=== PATIENT | female | born 1965 | race Caucasian/White ===

== ENCOUNTER 2017-05-02 10:01 | Emergency (ER) | payer OTHER ==
[2017-05-02] MEDS ORDERED: HYDROmorphone 2 MG/ML VIAL IV/SQ PRN (10:30)
[2017-05-02] MEDS ORDERED: 0.9 % SODIUM CHLORIDE 10 ML DISP.SYRIN. IV PRN (10:30)
[2017-05-02] MEDS ORDERED: IV NORMAL SALINE 1000ML BAG 1,000 ML IV SCH (10:30)
[2017-05-02 10:31] LABS: BASO % 0 % (0-3); EOS % 2 % (0-3); HEMOGLOBIN 14.2 g/dL (12.0-15.5); LYMPH # 2.8 x10^3/uL (1.0-4.8); LYMPH % 37 % (24-48); MEAN CORPUSCULAR HEMOGLOBIN 31 pg (25-35); MEAN CORPUSCULAR HGB CONC 35 g/dL (31-37); MEAN CORPUSCULAR VOLUME 91 fL (79-100); MONO % 7 % (0-9); NEUT % 53 % (31-73); PLATELET COUNT 319 x10^3/uL (140-400); RED BLOOD COUNT 4.53 x10^6/uL (3.50-5.40); RED CELL DISTRIBUTION WIDTH 13.2 % (11.5-14.5); WHITE BLOOD COUNT 7.5 x10^3/uL (4.0-11.0)
[2017-05-02 10:39] LABS: CALCIUM 8.8 mg/dL (8.5-10.1); CREATININE 0.9 mg/dL (0.6-1.0); POTASSIUM 4.1 mmol/L (3.5-5.1)
[2017-05-02] MEDS ORDERED: FAMOTIDINE 20 MG/2 ML VIAL IVP ONE (10:45)
[2017-05-02] MEDS ORDERED: ONDANSETRON PF 4 MG/2 ML VIAL. IV ONE (10:45)
[2017-05-02 10:46] LABS: ALBUMIN 3.7 g/dL (3.4-5.0); DIRECT BILIRUBIN 0.1 mg/dL (0.0-0.2); MAGNESIUM 1.8 mg/dL (1.8-2.4); TOTAL BILIRUBIN 0.3 mg/dL (0.2-1.0); TOTAL PROTEIN 7.5 g/dL (6.4-8.2)
[2017-05-02 10:53] LABS: CKMB MASS 0.8 ng/mL (0.0-3.6); CREATINE KINASE 56 U/L (26-192)
[2017-05-02] MEDS ORDERED: CONTRAST GIVEN MC PRN (11:15)
[2017-05-02] MEDS ORDERED: IOHEXOL 300 MG/ML 75 ML VIAL IV ONE (11:30)
--- NOTE | 2017-05-02 11:33 | PHYS DOC ---
Past Medical History Past Medical History: Other Additional Past Medical Histor: CROHNS,LOWER LUMBAR BULGING DISC Past Surgical History: Other Additional Past Surgical Histo: ARTHROSCOPIC R KNEE Alcohol Use: Occasionally Drug Use: None Adult General Chief Complaint Chief Complaint: ABDOMINAL PAIN [facility] HPI sHe is a pleasant 52-year-old female with history of chronic lower back pain is been treating by herself and using NSAIDs daily for last 2 months. She is also self-reported history of Crohn's disease not the care of any GI physician on no medications. Her last 4 days she presents with increasing left upper quadrant abdominal pain is worse with breathing is worse in the mornings and worse with food. She's had some nausea without vomiting no diarrhea no loose stools patient denies any blood in her stool, or constipation. She denies any trauma to her abdomen, denies any fevers, chills, chest pain she is mildly short of breath secondary to pain which takes deep breath in and it moves her left abdominal wall. Patient denies any right wrist and the same symptoms except for the last 4 days. The pain is now more constant as it was episodic at first but now progressively worse. She denies any abdominal distention. Patient denies any travel outside the country, recent antibiotics, or sick contacts. My abdominal pain differential includes but not limited to ectopic , UTI, pyonephritis, cholecystitis, cholelithiasis, pancreatitis, appendicitis, small bowel obstruction, large bowel obstruction, diverticulosis, Diverticulum, intussusception, volvulus, irritable bowel disease, Crohn's or ulcerative colitis, considered upon arrival Review of Systems Review of Systems Constitutional: Denies fever or chills [] Eyes: Denies change in visual acuity, redness, or eye pain [] HENT: Denies nasal congestion or sore throat [] Respiratory: Denies cough or she does complain of shortness of breath with abdominal wall pain when she moves. Cardiovascular: No additional information not addressed in HPI [] GI: She does complain of abdominal pain in the left upper quadrant is constant in nature. She denies any vomiting bloody stools or diarrhea. : Denies dysuria or hematuria [] Musculoskeletal: Does have chronic mid back pain secondary to bulging disks. Integument: Denies rash or skin lesions [] Neurologic: Denies headache, focal weakness or sensory changes [] Endocrine: Denies polyuria or polydipsia [] Current Medications Current Medications Current Medications Medications (Trade) Dose Ordered Sig/Daisy Start Time Stop Time Status Last Admin Dose Admin Famotidine (Pepcid) 20 mg 1X ONCE 05/02/17 10:45 05/02/17 10:46 DC 05/02/17 11:06 20 MG Hydromorphone HCl (Dilaudid) 1 mg PRN Q15MIN PRN 05/02/17 10:30 05/03/17 10:29 Info (Do NOT chart on this entry -- for MONITORING) 1 each PRN DAILY PRN 05/02/17 11:15 05/04/17 11:14 Iohexol (Omnipaque 300 Mg/ml) 75 ml 1X ONCE 05/02/17 11:30 05/02/17 11:31 DC 05/02/17 11:10 75 ML Ondansetron HCl (Zofran) 4 mg 1X ONCE 05/02/17 10:45 05/02/17 10:46 DC 05/02/17 11:06 4 MG Sodium Chloride (Normal Saline Flush) 10 ml QSHIFT PRN 05/02/17 10:30 Allergies Allergies Allergies Coded Allergies Type Severity Reaction Last Updated Verified Penicillins Allergy Intermediate Hives 08/01/15 No Physical Exam Physical Exam Vital signs on the chart and reviewed within normal limits. Constitutional: Well developed, well nourished, he is [place] uncomfortable but nontoxic in appearance nondiaphoretic pale. HENT: Normocephalic, atraumatic, bilateral external ears normal, dry mucous membranes, no oral exudates, nose normal. [] Eyes: PERRLA, EOMI, conjunctiva normal, no discharge. [] Neck: Normal range of motion, no tenderness, supple, no stridor. [] Cardiovascular:Heart rate regular rhythm, no murmur [] Lungs & Thorax: Bilateral breath sounds clear to auscultation [] Abdomen: Patient does have tenderness to palpation left upper quadrant with some voluntary guarding no rebound or organomegaly. Patient is no Cardozo's or McBurney's point tenderness palpation of greater sign. Skin: Warm, dry, no erythema, no rash. [] Back: No specific CVA tenderness elicited on exam. Extremities: No tenderness, no cyanosis, no clubbing, ROM intact, no edema. [] Neurologic: Alert and oriented X 3, normal motor function, normal sensory function, no focal deficits noted. [] Psychologic: Affect normal, judgement normal, mood normal. [] Current Patient Data Vital Signs Vital Signs Date Time Temp Pulse Resp B/P (MAP) Pulse Ox O2 Delivery O2 Flow Rate FiO2 05/02/17 11:10 92 107/69 (82) 98 Room Air 05/02/17 10:10 98.8 16 98.8 Lab Values Laboratory Tests Test 05/02/17 10:15 White Blood Count 7.5 x10^3/uL (4.0-11.0) Red Blood Count 4.53 x10^6/uL (3.50-5.40) Hemoglobin 14.2 g/dL (12.0-15.5) Hematocrit 41.0 % (36.0-47.0) Mean Corpuscular Volume 91 fL (79-100) Mean Corpuscular Hemoglobin 31 pg (25-35) Mean Corpuscular Hemoglobin Concent 35 g/dL (31-37) Red Cell Distribution Width 13.2 % (11.5-14.5) Platelet Count 319 x10^3/uL (140-400) Neutrophils (%) (Auto) 53 % (31-73) Lymphocytes (%) (Auto) 37 % (24-48) Monocytes (%) (Auto) 7 % (0-9) Eosinophils (%) (Auto) 2 % (0-3) Basophils (%) (Auto) 0 % (0-3) Neutrophils # (Auto) 4.0 x10^3uL (1.8-7.7) Lymphocytes # (Auto) 2.8 x10^3/uL (1.0-4.8) Monocytes # (Auto) 0.5 x10^3/uL (0.0-1.1) Eosinophils # (Auto) 0.1 x10^3/uL (0.0-0.7) Basophils # (Auto) 0.0 x10^3/uL (0.0-0.2) Sodium Level 137 mmol/L (136-145) Potassium Level 4.1 mmol/L (3.5-5.1) Chloride Level 102 mmol/L (98-107) Carbon Dioxide Level 31 mmol/L (21-32) Anion Gap 4 (6-14) L Blood Urea Nitrogen 10 mg/dL (7-20) Creatinine 0.9 mg/dL (0.6-1.0) Estimated GFR (Cockcroft-Gault) 66.0 Glucose Level 105 mg/dL (70-99) H Calcium Level 8.8 mg/dL (8.5-10.1) Magnesium Level 1.8 mg/dL (1.8-2.4) Total Bilirubin 0.3 mg/dL (0.2-1.0) Direct Bilirubin 0.1 mg/dL (0.0-0.2) Aspartate Amino Transferase (AST) 19 U/L (15-37) Alanine Aminotransferase (ALT) 22 U/L (14-59) Alkaline Phosphatase 79 U/L (46-116) Creatine Kinase 56 U/L (26-192) Creatine Kinase MB (Mass) 0.8 ng/mL (0.0-3.6) Creatine Kinase MB Relative Index % (0-4) Troponin I Quantitative < 0.017 ng/mL (0.000-0.055) DN-Dzy-X-Type Natriuretic Peptide 74 pg/mL (0-124) Total Protein 7.5 g/dL (6.4-8.2) Albumin 3.7 g/dL (3.4-5.0) Lipase 172 U/L (73-393) Laboratory Tests 05/02/17 10:15 Laboratory Tests 05/02/17 10:15 EKG EKG [] EKG completed 10:07 AM 05/02/2017 demonstrates normal sinus rhythm with a heart rate 98. Patient has some nonspecific ST segment T-wave changes in the anterior leads of V1 and V2. She has a slightly's sounds elevation in lead V1 no clear ST segment depression. Patient has nonspecific abnormal EKG with no clear signs of STEMI. EKG read by Dr. Mesa. Radiology/Procedures Radiology/Procedures [] [address] [place], [place] [id number] IMAGING REPORT Signed PATIENT: JACKELINE LINO ACCOUNT: [id number] : 1965 LOCATION: ER AGE: 52 SEX: F EXAM STATUS: REG ER ORD. PHYSICIAN: WON MESA MD REASON: left upper quadrant abdominal pain PROCEDURE: CT ABD PELV W/ IV CONTRST ONLY Indication left upper quadrant pain for 4 days. Axial images through the abdomen and pelvis were obtained. No oral contrast was administered. 75 cc of Omnipaque 300 was administered intravenously. No prior imaging is available. There is some minimal scarring or atelectasis at the left lung base ventrally. An acute or definite significant finding at either lung base is not seen. A significant finding in the liver is not seen. There is a low-density subcentimeter mass in the right lobe likely reflecting a small incidental cyst. The spleen appears unremarkable. There is probable cholelithiasis. This could be further evaluated with ultrasound if clinically warranted. No pancreatic abnormality is seen. No adrenal pathology is seen. There are several right renal calculi. There is no hydronephrosis hydroureter or calcification seen along the course of either ureter. Several phleboliths are noted in the pelvis. Acute finding in the abdomen is not seen. No acute finding is seen in the pelvis. IMPRESSION: No acute finding seen in the abdomen or pelvis. Probable cholelithiasis. Right renal calculi DICTATED and SIGNED BY: MÓNICA CRAWFORD MD DATE: 05/02/17 1141 CC: WON MESA MD; NO PCP ~ IMAGING REPORT Signed PATIENT: JACKELINE LINO ACCOUNT: [id number] : 1965 LOCATION: ER AGE: 52 SEX: F EXAM STATUS: REG ER ORD. PHYSICIAN: WON MESA MD REASON: cholelithiasis with abdominal pain. PROCEDURE: ABDOMEN LTD Indication pain. Grayscale imaging was performed. Examination was targeted to the right upper quadrant. Note is made of the CT examination of the abdomen and pelvis suggesting cholelithiasis. The visualized liver appears unremarkable. The common bile duct is prominent measuring approximately 7.5 mm. Known right renal calculi are reproduced.. There is cholelithiasis. The visualized inferior vena cava appeared normal. IMPRESSION: Cholelithiasis. Moderately prominent common bile duct. DICTATED and SIGNED BY: MÓNICA CRAWFORD MD DATE: 05/02/17 1239 CC: WON MESA MD; NO PCP ~ Course & Med Decision Making Course & Med Decision Making Pertinent Labs and Imaging studies reviewed. (See chart for details) I reviewed patient's notes ER visit documentation, laboratory work and EKG upon arrival. [] My abdominal pain differential includes but not limited to ectopic , UTI, pyonephritis, cholecystitis, cholelithiasis, pancreatitis, appendicitis, small bowel obstruction, large bowel obstruction, diverticulosis, Diverticulum, intussusception, volvulus, irritable bowel disease, Crohn's or ulcerative colitis, considered upon arrival Patient arrives with belly pain in the left upper quadrant after using NSAIDs for 2 months. 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 Patient may have actually a small ulcer or perforation at this time given the severity of her symptoms of increased over last 4 days. Patient was given a GI cocktail fluids antiemetics here in the emergency department with marked improvement of her symptoms. Patient tells me that their symptoms given during CC are improved. Time is now 11:53 AM We reviewed labs and radiology reports with patient at this time a CAT scan reveals cholelithiasis. She is nontender in the right upper quadrant she does not have any fever or elevated LFTs with normal white count. Patient will have a abdominal ultrasound done of her abdomen to rule out cholelithiasis with cholecystitis. Time is now 1:17 PMPatient tells me that their symptoms given during CC are improved. We reviewed labs and radiology reports with patient and any family at bedside. Ultrasound shows a predominance, bile duct with no dilatation greater than 7.5 mm. Patient has no gallbladder wall thickness, no Pulses fluid. No sonographic Cardozo's no evidence of cholecystitis on exam. Patient denied discussed changing her medications from NSAIDs to possibly something with little narcotic in it to prevent any secondary sequelae of and said usage. She will be followed up with GI as soon as she possibly arranged. She needs an EGD but in the interim I will treat her with Carafate and proton pump inhibitor and encouraged her not to use NSAIDs. Impression: Dyspepsia, peptic ulcer disease likely secondary to NSAID use, abdominal pain of unclear etiology. Dragon Disclaimer Dragon Disclaimer This electronic medical record was generated, in whole or in part, using a voice recognition dictation system. Departure Departure Impression: Primary Impression: Cholelithiasis Additional Impressions: Dyspepsia Peptic ulcer disease Abdominal pain Disposition: HOME, SELF-CARE Condition: STABLE Referrals: NO PCP (PCP) Patient Instructions: Abdominal Pain, Cholelithiasis, Diet for Peptic Ulcer Disease, Peptic Ulcer Disease Additional Instructions: Please return for any new or increasing symptoms in the right upper quadrant or left upper quadrant despite treatment. Advise you do not take any NSAIDs anymore until you see the GI doctor. I believe that the pain medications you are using May the causing her symptoms and this continued usage may cause perforation of your abdomen. Please return if he requested concerns or symptoms are not improved with therapy. This follow up with your primary care doctor for referral to GI for EGD. Scripts Pantoprazole Sodium (PROTONIX) 40 Mg Tablet.dr 1 TAB PO DAILY, #30 TAB 5 Refills Prov: WON MESA MD 05/02/17 Hydrocodone Bit/Acetaminophen (HYDROCODONE-APAP 5-325 ) 1 Each Tablet 1-2 TAB PO PRN Q6HRS Y for PAIN for 5 Days, #10 TAB 0 Refills Prov: WON MESA MD 05/02/17 Sucralfate (CARAFATE) 1 Gm Tablet 1 TAB PO QID, #60 TAB 1 Refill Prov: WON MESA MD 05/02/17 Problem Qualifiers WON MESA MD May 02, 2017 11:33
--- NOTE | 2017-05-02 11:52 | RAD ---
Indication left upper quadrant pain for 4 days. Axial images through the abdomen and pelvis were obtained. No oral contrast was administered. 75 cc of Omnipaque 300 was administered intravenously. No prior imaging is available. There is some minimal scarring or atelectasis at the left lung base ventrally. An acute or definite significant finding at either lung base is not seen. A significant finding in the liver is not seen. There is a low-density subcentimeter mass in the right lobe likely reflecting a small incidental cyst. The spleen appears unremarkable. There is probable cholelithiasis. This could be further evaluated with ultrasound if clinically warranted. No pancreatic abnormality is seen. No adrenal pathology is seen. There are several right renal calculi. There is no hydronephrosis hydroureter or calcification seen along the course of either ureter. Several phleboliths are noted in the pelvis. Acute finding in the abdomen is not seen. No acute finding is seen in the pelvis. IMPRESSION: No acute finding seen in the abdomen or pelvis. Probable cholelithiasis. Right renal calculi
--- NOTE | 2017-05-02 12:44 | RAD ---
Indication pain. Grayscale imaging was performed. Examination was targeted to the right upper quadrant. Note is made of the CT examination of the abdomen and pelvis suggesting cholelithiasis. The visualized liver appears unremarkable. The common bile duct is prominent measuring approximately 7.5 mm. Known right renal calculi are reproduced.. There is cholelithiasis. The visualized inferior vena cava appeared normal. IMPRESSION: Cholelithiasis. Moderately prominent common bile duct.
[2017-05-02] MEDS ORDERED: SUCR1TAB35 PO (13:23)
[2017-05-02] MEDS ORDERED: PANT40TA3 PO (13:23)
[2017-05-02] MEDS ORDERED: HYDR-2758 PO (13:23)
[2017-05-02 13:30] VITALS: BP 103/66
--- NOTE | 2017-05-02 14:59 | EKG ---
[facility] [address] [place] [id number] Test Date: 2017-05-02 Test Time: 10:07:54 Pat Name: JACKELINE LINO Department: Room: Gender: F Industrial Engineering Manager: : 1965 Requested By: WON MESA Order Number: [id number] Reading MD: Sebastian Garcia Measurements Intervals [place] Rate: 98 P: 62 NH: 76 QRS: 2 QRSD: 116 T: -101 QT: 380 QTc: 487 Interpretive Statements SINUS RHYTHM QRS(T) CONTOUR ABNORMALITY CONSIDER ANTEROLATERAL MYOCARDIAL DAMAGE CONSISTENT WITH INFERIOR INFARCT AGE UNDETERMINED ABNORMAL ECG RI6.01 No previous ECG available for comparison Electronically Signed On 05-07-2017 9:40:16 CDT by Sebastian Garcia
== END 2017-05-02 13:31 | disposition home or self-care (01) ==
LOC: ER 10:01
DX: K27.9 Peptic ulcer, site unspecified, unspecified as acute or chronic, without hemorrhage or perforation (principal); K80.20 Calculus of gallbladder without cholecystitis without obstruction; K58.9 Irritable bowel syndrome, unspecified; K50.90 Crohn's disease, unspecified, without complications; G89.29 Other chronic pain; Z87.440 Personal history of urinary (tract) infections; Z87.19 Personal history of other diseases of the digestive system; Z88.0 Allergy status to penicillin
CPT/HCPCS: 36415; 74177; 76705; 80048; 80076; 82553; 83690; 83735; 83880; 84484; 85027; 93005; 96361; 96374; 96375; 99285; J2405; J7030; Q9967; S0028

== ENCOUNTER 2017-12-26 00:33 | Emergency (ER) | payer SELFPAY, OTHER ==
[2017-12-26] MEDS: TETRACAINE 0.5% OPHTH SOLUTION 4ML BOTTLE. OD (00:42)
[2017-12-26] MEDS: FLUORESCEIN OPHTH TEST STRIP. OD (00:43)
== END 2017-12-26 00:58 | disposition home or self-care (01) ==
LOC: ER 00:33
DX: T15.02XA Foreign body in cornea, left eye, initial encounter (principal); Z88.0 Allergy status to penicillin; X58.XXXA Exposure to other specified factors, initial encounter; Y93.89 Activity, other specified; Y92.89 Other specified places as the place of occurrence of the external cause; Y99.8 Other external cause status
CPT/HCPCS: 65220; 99284

== ENCOUNTER 2019-01-18 07:08 | Inpatient (IN) | payer SELFPAY ==
[~2019-01-18] VITALS: Ht 172.7 cm; Wt 92.1 kg
[~2019-01-18 07:08] MED LIST: HYDR-2761 PO; PANT40TA3 PO; SUCR1TAB35 PO
[2019-01-18] MEDS ORDERED: MORPHINE SULFATE 4 MG/ML VIAL. IV ONE (07:45)
[2019-01-18] MEDS ORDERED: ONDANSETRON PF 4 MG/2 ML VIAL. IV ONE (07:45)
[2019-01-18] MEDS ORDERED: IV NORMAL SALINE 1000ML BAG 1,000 ML IV ONE (07:45)
[2019-01-18 07:59] LABS: BILIRUBIN,URINE NEGATIVE (NEG); CLARITY,URINE CLOUDY; COLOR,URINE YELLOW; NITRITE,URINE POSITIVE (NEG); PROTEIN,URINE NEGATIVE (NEG-TRACE)
[2019-01-18 08:04] LABS: CALCIUM 9.1 mg/dL (8.5-10.1); CREATININE 0.8 mg/dL (0.6-1.0); GFR 75.3; POTASSIUM 3.7 mmol/L (3.5-5.1)
[2019-01-18 08:07] LABS: BASO % 0 % (0-3); EOS # 0.1 x10^3/uL (0.0-0.7); EOS % 1 % (0-3); HEMATOCRIT 39.2 % (36.0-47.0); HEMOGLOBIN 13.5 g/dL (12.0-15.5); LYMPH # 1.6 x10^3/uL (1.0-4.8); LYMPH % 14 % (24-48); MEAN CORPUSCULAR HEMOGLOBIN 31 pg (25-35); MEAN CORPUSCULAR HGB CONC 34 g/dL (31-37); MEAN CORPUSCULAR VOLUME 90 fL (79-100); MONO # 1.1 x10^3/uL (0.0-1.1); MONO % 10 % (0-9); NEUT # 8.4 x10^3uL (1.8-7.7); NEUT % 75 % (31-73); PLATELET COUNT 302 x10^3/uL (140-400); RED BLOOD COUNT 4.35 x10^6/uL (3.50-5.40); RED CELL DISTRIBUTION WIDTH 13.5 % (11.5-14.5); WHITE BLOOD COUNT 11.3 x10^3/uL (4.0-11.0)
--- NOTE | 2019-01-18 08:09 | PHYS DOC ---
Past Medical History Past Medical History: Other Additional Past Medical Histor: CROHNS,LOWER LUMBAR BULGING DISC,"BRAIN TUMOR" Past Surgical History: Other Additional Past Surgical Histo: ARTHROSCOPIC R KNEE Alcohol Use: Occasionally Drug Use: None Adult General Chief Complaint Chief Complaint: ABDOMINAL PAIN HPI HPI Patient is a 53 year old female presented to ER today for evaluation of diffuse abdominal pain for the last 3 days. Patient also complained of nausea and v omiting. Patient has history of Crohn disease, she had not seen a GI doctor recently. Patient denies any fever, no chest pain, no trouble breathing. Review of Systems Review of Systems Constitutional: Denies fever or chills [] Eyes: Denies change in visual acuity, redness, or eye pain [] HENT: Denies nasal congestion or sore throat [] Respiratory: Denies cough or shortness of breath [] Cardiovascular: No additional information not addressed in HPI [] GI: Positive for abdominal pain, nausea, vomiting, NO bloody stools or diarrhea [] : Denies dysuria or hematuria [] Musculoskeletal: Denies back pain or joint pain [] Integument: Denies rash or skin lesions [] Neurologic: Denies headache, focal weakness or sensory changes [] Endocrine: Denies polyuria or polydipsia [] All other systems were reviewed and found to be within normal limits, except as documented in this note. Current Medications Current Medications Current Medications Medications (Trade) Dose Ordered Sig/[facility] Start Time Stop Time Status Last Admin Dose Admin Fentanyl Citrate (Fentanyl 2ml Vial) 50 mcg 1X ONCE 01/18/19 09:15 01/18/19 09:16 DC 01/18/19 09:12 50 MCG Info (CONTRAST GIVEN -- Rx MONITORING) 1 each PRN DAILY PRN 01/18/19 08:30 01/20/19 08:29 Iohexol (Omnipaque 300 Mg/ml) 75 ml 1X ONCE 01/18/19 08:30 01/18/19 08:31 DC 01/18/19 08:38 75 ML Morphine Sulfate (Morphine Sulfate) 4 mg Q4HRS PRN 01/18/19 10:15 01/19/19 10:14 01/18/19 10:24 4 MG Ondansetron HCl (Zofran) 4 mg PRN Q8HRS PRN 01/18/19 10:15 01/19/19 10:14 Sodium Chloride 1,000 ml @ 100 mls/hr Q10H 01/18/19 10:08 01/19/19 10:07 01/18/19 10:24 100 MLS/HR Allergies Allergies Allergies Coded Allergies Type Severity Reaction Last Updated Verified Penicillins Allergy Intermediate Hives 08/01/15 No Physical Exam Physical Exam Constitutional: Well developed, well nourished, no acute distress, non-toxic appearance. [] HENT: Normocephalic, atraumatic, bilateral external ears normal, oropharynx moist, no oral exudates, nose normal. [] Eyes: PERRLA, EOMI, conjunctiva normal, no discharge. [] Neck: Normal range of motion, no tenderness, supple, no stridor. [] Cardiovascular:Heart rate regular rhythm, loud heart murmur Lungs & Thorax: Bilateral breath sounds clear to auscultation [] Abdomen: Bowel sounds normal, soft, There is tenderness to palpation diffusely, no masses, no pulsatile masses. [] Skin: Warm, dry, no erythema, no rash. [] Back: No tenderness, no CVA tenderness. [] Extremities: No tenderness, no cyanosis, no clubbing, ROM intact, no edema. [] Neurologic: Alert and oriented X 3, normal motor function, normal sensory function, no focal deficits noted. [] Psychologic: Affect normal, judgement normal, mood normal. [] Current Patient Data Vital Signs Vital Signs Date Time Temp Pulse Resp B/P (MAP) Pulse Ox O2 Delivery O2 Flow Rate FiO2 01/18/19 10:00 73 16 104/71 (82) 98 Room Air 01/18/19 07:10 97.5 97.5 Lab Values Laboratory Tests Test 01/18/19 07:10 01/18/19 07:40 Urine Collection Type Void Urine Color Yellow Urine Clarity Cloudy Urine pH 6.0 Urine Specific [place] 1.025 Urine Protein Negative mg/dL (NEG-TRACE) Urine Glucose (UA) Negative mg/dL (NEG) Urine Ketones (Stick) Trace mg/dL (NEG) Urine Blood Small (NEG) Urine Nitrite Positive (NEG) Urine Bilirubin Negative (NEG) Urine Urobilinogen Dipstick 2.0 mg/dL (0.2 mg/dL) Urine Leukocyte Esterase Moderate (NEG) Urine RBC 0 /HPF (0-2) Urine WBC 5-10 /HPF (0-4) Urine Squamous Epithelial Cells Mod /LPF Urine Amorphous Sediment Present /HPF Urine Bacteria Many /HPF (0-FEW) Urine Mucus Mod /LPF White Blood Count 11.3 x10^3/uL (4.0-11.0) H Red Blood Count 4.35 x10^6/uL (3.50-5.40) Hemoglobin 13.5 g/dL (12.0-15.5) Hematocrit 39.2 % (36.0-47.0) Mean Corpuscular Volume 90 fL (79-100) Mean Corpuscular Hemoglobin 31 pg (25-35) Mean Corpuscular Hemoglobin Concent 34 g/dL (31-37) Red Cell Distribution Width 13.5 % (11.5-14.5) Platelet Count 302 x10^3/uL (140-400) Neutrophils (%) (Auto) 75 % (31-73) H Lymphocytes (%) (Auto) 14 % (24-48) L Monocytes (%) (Auto) 10 % (0-9) H Eosinophils (%) (Auto) 1 % (0-3) Basophils (%) (Auto) 0 % (0-3) Neutrophils # (Auto) 8.4 x10^3uL (1.8-7.7) H Lymphocytes # (Auto) 1.6 x10^3/uL (1.0-4.8) Monocytes # (Auto) 1.1 x10^3/uL (0.0-1.1) Eosinophils # (Auto) 0.1 x10^3/uL (0.0-0.7) Basophils # (Auto) 0.0 x10^3/uL (0.0-0.2) Sodium Level 137 mmol/L (136-145) Potassium Level 3.7 mmol/L (3.5-5.1) Chloride Level 103 mmol/L (98-107) Carbon Dioxide Level 24 mmol/L (21-32) Anion Gap 10 (6-14) Blood Urea Nitrogen 10 mg/dL (7-20) Creatinine 0.8 mg/dL (0.6-1.0) Estimated GFR (Cockcroft-Gault) 75.3 BUN/Creatinine Ratio 13 (6-20) Glucose Level 117 mg/dL (70-99) H Calcium Level 9.1 mg/dL (8.5-10.1) Total Bilirubin 0.5 mg/dL (0.2-1.0) Aspartate Amino Transferase (AST) 20 U/L (15-37) Alanine Aminotransferase (ALT) 23 U/L (14-59) Alkaline Phosphatase 80 U/L (46-116) Total Protein 7.0 g/dL (6.4-8.2) Albumin 3.3 g/dL (3.4-5.0) L Albumin/Globulin Ratio 0.9 (1.0-1.7) L Lipase 91 U/L (73-393) Laboratory Tests 01/18/19 07:40 Laboratory Tests 01/18/19 07:40 EKG EKG [] Radiology/Procedures Radiology/Procedures [facility] [address] [place] [address] IMAGING REPORT Signed PATIENT: JACKELINE LINO ACCOUNT: [id number] : 1965 LOCATION: ER AGE: 53 SEX: F EXAM STATUS: REG ER ORD. PHYSICIAN: MP RUTHERFORD DO REASON: ABDOMINAL PAIN, EPIGASTRIC PAIN X3 DAYS PROCEDURE: CT ABD PELV W/ IV CONTRST ONLY CT ABD PELV W/ IV CONTRST ONLY Indication: Epigastric pain Technique: Postcontrast CT imaging was performed of the abdomen pelvis, multiplanar reconstruction images submitted. One or more of the following individualized dose reduction techniques were utilized for this examination: 1. Automated exposure control 2. Adjustment of the mA and/or kV according to patient size 3. Use of iterative reconstruction technique. Comparison: May 02, 2017 Findings: Accurate evaluation bowel somewhat limited without oral contrast. However there is a long segment of thick walled small bowel to involve the terminal ileum, associated subtle enhancement of the terminal ileum. There is also some relative wall thickening and mucosal enhancement of the proximal ascending colon. There is some fluid in the small bowel, segment of small bowel dilated up to about 3.7 cm. No free air is identified. There is trace free fluid in the pelvis. Appendix is not confidently identified. There are again about 6 right renal calculi, largest about 0.7 cm inferiorly at site of volume loss. There is some variable thinning of the cortex right kidney. There is no hydronephrosis of either kidney. Both kidneys enhance. No new focal abnormality is identified of the pancreas, spleen, liver. Small 0.6 cm hypodense lesion of the left lobe of liver is similar. Gallbladder is present with subtle internal density, cholelithiasis demonstrated on previous 2017 abdomen ultrasound. There is no adrenal nodularity. There is degenerative disc disease greatest at what is considered L4-5 and L5-S1, also facet degenerative change greater inferiorly of the lumbar spine. Sclerotic lesion of the proximal right femur is stable. IMPRESSION: 1. There is long segment wall thickening and mild mucosal enhancement of the distal small bowel involving terminal ileum and also of the proximal ascending colon, evidence of enterocolitis. Appendix is not clearly identified. There is some fluid in the distended segments of small bowel, more likely ileus than partial obstruction. There is trace free fluid in the pelvis. 2. There are nonobstructive right renal calculi, some areas of cortical thinning of the right kidney as seen previously. 3. There is cholelithiasis as better demonstrated on previous ultrasound. Electronically signed by: Zack Blanco MD (01/18/2019 8:54 AM) [facility] DICTATED and SIGNED BY: ZACK BLANCO MD DATE: 01/18/19 0854 Course & Med Decision Making Course & Med Decision Making Pertinent Labs and Imaging studies reviewed. (See chart for details) [] Dragon Disclaimer Dragon Disclaimer This electronic medical record was generated, in whole or in part, using a voice recognition dictation system. Departure Departure Impression: Primary Impression: Crohns disease Additional Impressions: Biliary colic UTI (urinary tract infection) Disposition: 09 ADMITTED INPATIENT Admitting Physician: Renata Beasley Condition: STABLE Referrals: NO PCP (PCP) Problem Qualifiers MP RUTHERFORD DO Jan 18, 2019 08:09
[2019-01-18 08:10] LABS: ALBUMIN 3.3 g/dL (3.4-5.0); ALBUMIN/GLOBULIN RATIO 0.9 (1.0-1.7); TOTAL BILIRUBIN 0.5 mg/dL (0.2-1.0)
[2019-01-18 08:13] LABS: BACTERIA,URINE MANY /HPF (0-FEW); RBC,URINE 0 /HPF (0-2); SQUAMOUS EPITHELIAL CELL,UR MOD /LPF
[2019-01-18 08:14] LABS: AMORPHOUS SEDIMENT,UR PRESENT /HPF
[2019-01-18] MEDS ORDERED: IOHEXOL 300 MG/ML 100ML VIAL. IV ONE (08:30)
[2019-01-18] MEDS ORDERED: CONTRAST GIVEN. MC PRN (08:30)
--- NOTE | 2019-01-18 08:57 | RAD ---
CT ABD PELV W/ IV CONTRST ONLY Indication: Epigastric pain Technique: Postcontrast CT imaging was performed of the abdomen pelvis, multiplanar reconstruction images submitted. One or more of the following individualized dose reduction techniques were utilized for this examination: 1. Automated exposure control 2. Adjustment of the mA and/or kV according to patient size 3. Use of iterative reconstruction technique. Comparison: May 02, 2017 Findings: Accurate evaluation bowel somewhat limited without oral contrast. However there is a long segment of thick walled small bowel to involve the terminal ileum, associated subtle enhancement of the terminal ileum. There is also some relative wall thickening and mucosal enhancement of the proximal ascending colon. There is some fluid in the small bowel, segment of small bowel dilated up to about 3.7 cm. No free air is identified. There is trace free fluid in the pelvis. Appendix is not confidently identified. There are again about 6 right renal calculi, largest about 0.7 cm inferiorly at site of volume loss. There is some variable thinning of the cortex right kidney. There is no hydronephrosis of either kidney. Both kidneys enhance. No new focal abnormality is identified of the pancreas, spleen, liver. Small 0.6 cm hypodense lesion of the left lobe of liver is similar. Gallbladder is present with subtle internal density, cholelithiasis demonstrated on previous 2017 abdomen ultrasound. There is no adrenal nodularity. There is degenerative disc disease greatest at what is considered L4-5 and L5-S1, also facet degenerative change greater inferiorly of the lumbar spine. Sclerotic lesion of the proximal right femur is stable. IMPRESSION: 1. There is long segment wall thickening and mild mucosal enhancement of the distal small bowel involving terminal ileum and also of the proximal ascending colon, evidence of enterocolitis. Appendix is not clearly identified. There is some fluid in the distended segments of small bowel, more likely ileus than partial obstruction. There is trace free fluid in the pelvis. 2. There are nonobstructive right renal calculi, some areas of cortical thinning of the right kidney as seen previously. 3. There is cholelithiasis as better demonstrated on previous ultrasound. Electronically signed by: Yemi De Paz MD (01/18/2019 8:54 AM) [facility]
[2019-01-18] MEDS ORDERED: fentaNYL PF VIAL 100 MCG/2 ML VIAL IV ONE (09:15)
[2019-01-18] MEDS ORDERED: ONDANSETRON PF 4 MG/2 ML VIAL. IV PRN (10:15)
[2019-01-18] MEDS: IV NORMAL SALINE 1000ML BAG 1,000 ML IV SCH ×2 (10:24→19:48)
[2019-01-18] MEDS: MORPHINE SULFATE 4 MG/ML VIAL. IV PRN ×3 (10:24→19:47)
[2019-01-18 11:30] VITALS: BP 99/67
--- NOTE | 2019-01-18 11:44 | PDOC1 ---
History and Physical Date of Admission: Date of Admission DATE: 01/18/19 TIME: 11:43 Chief Complaint: Problems: (1) Eye foreign body (2) Biliary colic (3) Crohns disease (4) UTI (urinary tract infection) Chief Complain: Severe abdominal pain History of Present Illness: HPI: Patient is a 53 year old female presented to ER today for evaluation of diffuse abdominal pain for the last 3 days. Patient also complained of nausea and vomiting. Patient has history of Crohn disease, she had not seen a GI doctor recently. Patient denies any fever, no chest pain, no trouble breathing. Past Medical/Surgical History: PMH/PSH: Crohn's disease Allergies: Allergies: Coded Allergies: Penicillins (Unverified Allergy, Intermediate, Hives, 08/01/15) Family History: Family History: Crohn's disease Social History: Social Hisoty: She does not drink smoke or take drugs Current Medications: Current Medications Current Medications Morphine Sulfate (Morphine Sulfate) 4 mg 1X ONCE IV Last administered on 01/18/19at 07:50; Start 01/18/19 at 07:45; Stop 01/18/19 at 07:46; Status DC Ondansetron HCl (Zofran) 4 mg 1X ONCE IV Last administered on 01/18/19at 07:49; Start 01/18/19 at 07:45; Stop 01/18/19 at 07:46; Status DC Sodium Chloride 1,000 ml @ 1,000 mls/hr 1X ONCE IV Last administered on 01/18/19at 07:49; Start 01/18/19 at 07:45; Stop 01/18/19 at 08:44; Status DC Iohexol (Omnipaque 300 Mg/ml) 75 ml 1X ONCE IV Last administered on 01/18/19at 08:38; Start 01/18/19 at 08:30; Stop 01/18/19 at 08:31; Status DC Info (CONTRAST GIVEN -- Rx MONITORING) 1 each PRN DAILY PRN MC SEE COMMENTS; Start 01/18/19 at 08:30; Stop 01/20/19 at 08:29 Fentanyl Citrate (Fentanyl 2ml Vial) 50 mcg 1X ONCE IV Last administered on at 09:12; Start 01/18/19 at 09:15; Stop 01/18/19 at 09:16; Status DC Levofloxacin/ Dextrose 150 ml @ 100 mls/hr 1X ONCE IV Last administered on 01/18/19at 10:24; Start 01/18/19 at 10:30; Stop 01/18/19 at 11:59 Ondansetron HCl (Zofran) 4 mg PRN Q8HRS PRN IV NAUSEA/VOMITING; Start 01/18/19 at 10:15; Stop 01/19/19 at 10:14 Morphine Sulfate (Morphine Sulfate) 4 mg Q4HRS PRN IV PAIN Last administered on 01/18/19at 10:24; Start 01/18/19 at 10:15; Stop 01/19/19 at 10:14 Sodium Chloride 1,000 ml @ 100 mls/hr Q10H IV Last administered on 01/18/19at 10:24; Start 01/18/19 at 10:08; Stop 01/19/19 at 10:07 Active Scripts Active Protonix (Pantoprazole Sodium) 40 Mg Tablet.dr 1 Tab PO DAILY Hydrocodone-Apap 5-325 (Hydrocodone Bit/Acetaminophen) 1 Each Tablet 1-2 Tab PO PRN Q6HRS PRN 5 Days Carafate (Sucralfate) 1 Gm Tablet 1 Tab PO QID ROS: Review of Systems Review of System REVIEW OF SYSTEMS: GENERAL: Denies weakness SKIN: No bruising, hair changes or rashes. EYES: No blurred, double or loss of vision. NOSE AND THROAT: No history of nosebleeds, hoarseness or sore throat. HEART: No history of palpitations, chest pain or shortness of breath on exertion. LUNGS: Denies cough, hemoptysis, wheezing or shortness of breath. GASTROINTESTINAL: She complains of severe abdominal pain GENITOURINARY: No history of frequency, urgency, hesitancy or nocturia. NEUROLOGIC: Denies history of numbness, tingling, tremor or weakness. PSYCHIATRIC: No history of panic, anxiety or depression. ENDOCRINE: No history of heat or cold intolerance, polyuria or polydipsia. EXTREMITIES: Denies muscle weakness, joint pain, pain on walking or stiffness. Physical Exam: Vital Signs: Vital Signs Date Time Temp Pulse Resp B/P (MAP) Pulse Ox O2 Delivery O2 Flow Rate FiO2 01/18/19 10:00 73 16 104/71 (82) 98 Room Air 01/18/19 07:10 97.5 97.5 Physcial Exam: GEN.: No apparent distress. Alert and oriented. HEENT: Head is normocephalic, atraumatic NECK: Supple, no JVD LUNGS: Clear to auscultation without rhonchi or wheezing HEART: RRR, S1, S2 present. Peripheral pulses intact ABDOMEN: Soft, tender. Positive bowel sounds no organomegaly EXTREMITIES: Without any cyanosis, clubbing, or edema. Pedal pulses intact NEUROLOGIC: Normal speech, normal tone. A&O x 3 PSYCHIATRIC: Normal affect, normal mood. Stable SKIN: No ulcerations or rashes Labs: Labs: Laboratory Tests Test 01/18/19 07:10 01/18/19 07:40 Urine Collection Type Void Urine Color Yellow Urine Clarity Cloudy Urine pH 6.0 Urine Specific [place] 1.025 Urine Protein Negative mg/dL (NEG-TRACE) Urine Glucose (UA) Negative mg/dL (NEG) Urine Ketones (Stick) Trace mg/dL (NEG) Urine Blood Small (NEG) Urine Nitrite Positive (NEG) Urine Bilirubin Negative (NEG) Urine Urobilinogen Dipstick 2.0 mg/dL (0.2 mg/dL) Urine Leukocyte Esterase Moderate (NEG) Urine RBC 0 /HPF (0-2) Urine WBC 5-10 /HPF (0-4) Urine Squamous Epithelial Cells Mod /LPF Urine Amorphous Sediment Present /HPF Urine Bacteria Many /HPF (0-FEW) Urine Mucus Mod /LPF White Blood Count 11.3 x10^3/uL (4.0-11.0) Red Blood Count 4.35 x10^6/uL (3.50-5.40) Hemoglobin 13.5 g/dL (12.0-15.5) Hematocrit 39.2 % (36.0-47.0) Mean Corpuscular Volume 90 fL (79-100) Mean Corpuscular Hemoglobin 31 pg (25-35) Mean Corpuscular Hemoglobin Concent 34 g/dL (31-37) Red Cell Distribution Width 13.5 % (11.5-14.5) Platelet Count 302 x10^3/uL (140-400) Neutrophils (%) (Auto) 75 % (31-73) Lymphocytes (%) (Auto) 14 % (24-48) Monocytes (%) (Auto) 10 % (0-9) Eosinophils (%) (Auto) 1 % (0-3) Basophils (%) (Auto) 0 % (0-3) Neutrophils # (Auto) 8.4 x10^3uL (1.8-7.7) Lymphocytes # (Auto) 1.6 x10^3/uL (1.0-4.8) Monocytes # (Auto) 1.1 x10^3/uL (0.0-1.1) Eosinophils # (Auto) 0.1 x10^3/uL (0.0-0.7) Basophils # (Auto) 0.0 x10^3/uL (0.0-0.2) Sodium Level 137 mmol/L (136-145) Potassium Level 3.7 mmol/L (3.5-5.1) Chloride Level 103 mmol/L (98-107) Carbon Dioxide Level 24 mmol/L (21-32) Anion Gap 10 (6-14) Blood Urea Nitrogen 10 mg/dL (7-20) Creatinine 0.8 mg/dL (0.6-1.0) Estimated GFR (Cockcroft-Gault) 75.3 BUN/Creatinine Ratio 13 (6-20) Glucose Level 117 mg/dL (70-99) Calcium Level 9.1 mg/dL (8.5-10.1) Total Bilirubin 0.5 mg/dL (0.2-1.0) Aspartate Amino Transf (AST/SGOT) 20 U/L (15-37) Alanine Aminotransferase (ALT/SGPT) 23 U/L (14-59) Alkaline Phosphatase 80 U/L (46-116) Total Protein 7.0 g/dL (6.4-8.2) Albumin 3.3 g/dL (3.4-5.0) Albumin/Globulin Ratio 0.9 (1.0-1.7) Lipase 91 U/L (73-393) Laboratory Tests Test 01/18/19 07:10 01/18/19 07:40 Urine Collection Type Void Urine Color Yellow Urine Clarity Cloudy Urine pH 6.0 Urine Specific [place] 1.025 Urine Protein Negative mg/dL (NEG-TRACE) Urine Glucose (UA) Negative mg/dL (NEG) Urine Ketones (Stick) Trace mg/dL (NEG) Urine Blood Small (NEG) Urine Nitrite Positive (NEG) Urine Bilirubin Negative (NEG) Urine Urobilinogen Dipstick 2.0 mg/dL (0.2 mg/dL) Urine Leukocyte Esterase Moderate (NEG) Urine RBC 0 /HPF (0-2) Urine WBC 5-10 /HPF (0-4) Urine Squamous Epithelial Cells Mod /LPF Urine Amorphous Sediment Present /HPF Urine Bacteria Many /HPF (0-FEW) Urine Mucus Mod /LPF White Blood Count 11.3 x10^3/uL (4.0-11.0) Red Blood Count 4.35 x10^6/uL (3.50-5.40) Hemoglobin 13.5 g/dL (12.0-15.5) Hematocrit 39.2 % (36.0-47.0) Mean Corpuscular Volume 90 fL (79-100) Mean Corpuscular Hemoglobin 31 pg (25-35) Mean Corpuscular Hemoglobin Concent 34 g/dL (31-37) Red Cell Distribution Width 13.5 % (11.5-14.5) Platelet Count 302 x10^3/uL (140-400) Neutrophils (%) (Auto) 75 % (31-73) Lymphocytes (%) (Auto) 14 % (24-48) Monocytes (%) (Auto) 10 % (0-9) Eosinophils (%) (Auto) 1 % (0-3) Basophils (%) (Auto) 0 % (0-3) Neutrophils # (Auto) 8.4 x10^3uL (1.8-7.7) Lymphocytes # (Auto) 1.6 x10^3/uL (1.0-4.8) Monocytes # (Auto) 1.1 x10^3/uL (0.0-1.1) Eosinophils # (Auto) 0.1 x10^3/uL (0.0-0.7) Basophils # (Auto) 0.0 x10^3/uL (0.0-0.2) Sodium Level 137 mmol/L (136-145) Potassium Level 3.7 mmol/L (3.5-5.1) Chloride Level 103 mmol/L (98-107) Carbon Dioxide Level 24 mmol/L (21-32) Anion Gap 10 (6-14) Blood Urea Nitrogen 10 mg/dL (7-20) Creatinine 0.8 mg/dL (0.6-1.0) Estimated GFR (Cockcroft-Gault) 75.3 BUN/Creatinine Ratio 13 (6-20) Glucose Level 117 mg/dL (70-99) Calcium Level 9.1 mg/dL (8.5-10.1) Total Bilirubin 0.5 mg/dL (0.2-1.0) Aspartate Amino Transf (AST/SGOT) 20 U/L (15-37) Alanine Aminotransferase (ALT/SGPT) 23 U/L (14-59) Alkaline Phosphatase 80 U/L (46-116) Total Protein 7.0 g/dL (6.4-8.2) Albumin 3.3 g/dL (3.4-5.0) Albumin/Globulin Ratio 0.9 (1.0-1.7) Lipase 91 U/L (73-393) Images: Images 1. There is long segment wall thickening and mild mucosal enhancement of the distal small bowel involving terminal ileum and also of the proximal ascending colon, evidence of enterocolitis. Appendix is not clearly identified. There is some fluid in the distended segments of small bowel, more likely ileus than partial obstruction. There is trace free fluid in the pelvis. 2. There are nonobstructive right renal calculi, some areas of cortical thinning of the right kidney as seen previously. 3. There is cholelithiasis as better demonstrated on previous ultrasound. Assessment/Plan Assessment/Plan Abdominal pain with Crohn's flare and gallstones, and finding of a kidney stone, and ileus Plan Consult GI IV fluids when necessary Zofran when necessary narcotics consult general surgery DVT prophylaxis full code home meds LOW CERDA III DO Jan 18, 2019 11:44
--- NOTE | 2019-01-18 12:00 | NUR ---
Patient Sandy Bingham 53, F was admitted due to three day history of nausea and abdominal pain. She's awake, alert, oriented x4, reports lower abdominal pain 1/10. She was oriented to the unit, educated about indication for NPO. The patient verbalized understanding, call light placed within reach.
[2019-01-18] MEDS ORDERED: IBUP-1027 PO (14:11)
--- NOTE | 2019-01-18 14:59 | PDOC2 ---
GI CONSULT Reason For Consult: Crohn's and biliary colic HPI: HPI: 53 year old female presented to ER today for evaluation of diffuse abdominal pain for the last 3 days. Patient also complained of nausea and vomiting. Patient has history of Crohn disease that was diagnosed 8 years ago without a colonoscopy or surgical biopsy. She has never take meds for Crohn's. Ct 04/2017 did not demonstrate Crohn's. However, Ct 01/18/2019 with long segment wall thickening and mild mucosal enhancement of the distal small bowel involving terminal ileum and also of the proximal asce nding colon, evidence of enterocolitis. Appendix is not clearly identified. There is some fluid in the distended segments of small bowel, more likely ileus than partial obstruction. There is trace free fluid in the pelvis. She has a bowel movement once a week and denies blood in her stool. She cannot remember when she last had a bowel movement. She reports foul smelling urine. PMH: PMH: Past Medical/Surgical History: PMH/PSH: Crohn's disease- diagnosed 8 years ago. She denies colonoscopy of surgical diagnosis. She has never seen a GI Gallstones Allergies: Allergies: Coded Allergies: Penicillins (Unverified Allergy, Intermediate, Hives, 08/01/15) Family History: Family History: Crohn's disease Social History: Social Hisoty: She smokes 1 PPD. Denies EtOH or IVDA Current Medications: Current Medications Current Medications Morphine Sulfate (Morphine Sulfate) 4 mg 1X ONCE IV Last administered on 01/18/19at 07:50; Start 01/18/19 at 07:45; Stop 01/18/19 at 07:46; Status DC Ondansetron HCl (Zofran) 4 mg 1X ONCE IV Last administered on 01/18/19at 07:49; Start 01/18/19 at 07:45; Stop 01/18/19 at 07:46; Status DC Sodium Chloride 1,000 ml @ 1,000 mls/hr 1X ONCE IV Last administered on 01/18/19at 07:49; Start 01/18/19 at 07:45; Stop 01/18/19 at 08:44; Status DC Iohexol (Omnipaque 300 Mg/ml) 75 ml 1X ONCE IV Last administered on 01/18/19at 08:38; Start 01/18/19 at 08:30; Stop 01/18/19 at 08:31; Status DC Info (CONTRAST GIVEN -- Rx MONITORING) 1 each PRN DAILY PRN MC SEE COMMENTS; Start 01/18/19 at 08:30; Stop 01/20/19 at 08:29 Fentanyl Citrate (Fentanyl 2ml Vial) 50 mcg 1X ONCE IV Last administered on 01/18/19at 09:12; Start 01/18/19 at 09:15; Stop 01/18/19 at 09:16; Status DC Levofloxacin/ Dextrose 150 ml @ 100 mls/hr 1X ONCE IV Last administered on 01/18/19at 10:24; Start 01/18/19 at 10:30; Stop 01/18/19 at 11:59 Ondansetron HCl (Zofran) 4 mg PRN Q8HRS PRN IV NAUSEA/VOMITING; Start 01/18/19 at 10:15; Stop 01/19/19 at 10:14 Morphine Sulfate (Morphine Sulfate) 4 mg Q4HRS PRN IV PAIN Last administered on 01/18/19at 10:24; Start 01/18/19 at 10:15; Stop 01/19/19 at 10:14 Sodium Chloride 1,000 ml @ 100 mls/hr Q10H IV Last administered on 01/18/19at 10:24; Start 01/18/19 at 10:08; Stop 01/19/19 at 10:07 Active Scripts Active Protonix (Pantoprazole Sodium) 40 Mg Tablet. 1 Tab PO DAILY Hydrocodone-Apap 5-325 (Hydrocodone Bit/Acetaminophen) 1 Each Tablet 1-2 Tab PO PRN Q6HRS PRN 5 Days Carafate (Sucralfate) 1 Gm Tablet 1 Tab PO QID Social History: Smoke: 1 pack per day ALCOHOL: none Drugs: None ROS: ROS: Review of Systems Review of System REVIEW OF SYSTEMS: GENERAL: Denies weakness SKIN: No bruising, hair changes or rashes. EYES: No blurred, double or loss of vision. NOSE AND THROAT: No history of nosebleeds, hoarseness or sore throat. HEART: No history of palpitations, chest pain or shortness of breath on exertion. LUNGS: Denies cough, hemoptysis, wheezing or shortness of breath. GASTROINTESTINAL: She complains of severe abdominal pain GENITOURINARY: No history of frequency, urgency, hesitancy or nocturia. NEUROLOGIC: Denies history of numbness, tingling, tremor or weakness. PSYCHIATRIC: No history of panic, anxiety or depression. ENDOCRINE: No history of heat or cold intolerance, polyuria or polydipsia. EXTREMITIES: Denies muscle weakness, joint pain, pain on walking or stiffness. VItals: Vitals: Vital Signs Date Time Temp Pulse Resp B/P (MAP) Pulse Ox O2 Delivery O2 Flow Rate FiO2 01/18/19 14:31 18 98 Room Air 01/18/19 11:30 98.2 79 99/67 (78) 98.2 Labs: Labs: Laboratory Tests Test 01/18/19 07:10 01/18/19 07:40 Urine Collection Type Void Urine Color Yellow Urine Clarity Cloudy Urine pH 6.0 Urine Specific [place] 1.025 Urine Protein Negative mg/dL (NEG-TRACE) Urine Glucose (UA) Negative mg/dL (NEG) Urine Ketones (Stick) Trace mg/dL (NEG) Urine Blood Small (NEG) Urine Nitrite Positive (NEG) Urine Bilirubin Negative (NEG) Urine Urobilinogen Dipstick 2.0 mg/dL (0.2 mg/dL) Urine Leukocyte Esterase Moderate (NEG) Urine RBC 0 /HPF (0-2) Urine WBC 5-10 /HPF (0-4) Urine Squamous Epithelial Cells Mod /LPF Urine Amorphous Sediment Present /HPF Urine Bacteria Many /HPF (0-FEW) Urine Mucus Mod /LPF White Blood Count 11.3 x10^3/uL (4.0-11.0) Red Blood Count 4.35 x10^6/uL (3.50-5.40) Hemoglobin 13.5 g/dL (12.0-15.5) Hematocrit 39.2 % (36.0-47.0) Mean Corpuscular Volume 90 fL (79-100) Mean Corpuscular Hemoglobin 31 pg (25-35) Mean Corpuscular Hemoglobin Concent 34 g/dL (31-37) Red Cell Distribution Width 13.5 % (11.5-14.5) Platelet Count 302 x10^3/uL (140-400) Neutrophils (%) (Auto) 75 % (31-73) Lymphocytes (%) (Auto) 14 % (24-48) Monocytes (%) (Auto) 10 % (0-9) Eosinophils (%) (Auto) 1 % (0-3) Basophils (%) (Auto) 0 % (0-3) Neutrophils # (Auto) 8.4 x10^3uL (1.8-7.7) Lymphocytes # (Auto) 1.6 x10^3/uL (1.0-4.8) Monocytes # (Auto) 1.1 x10^3/uL (0.0-1.1) Eosinophils # (Auto) 0.1 x10^3/uL (0.0-0.7) Basophils # (Auto) 0.0 x10^3/uL (0.0-0.2) Sodium Level 137 mmol/L (136-145) Potassium Level 3.7 mmol/L (3.5-5.1) Chloride Level 103 mmol/L (98-107) Carbon Dioxide Level 24 mmol/L (21-32) Anion Gap 10 (6-14) Blood Urea Nitrogen 10 mg/dL (7-20) Creatinine 0.8 mg/dL (0.6-1.0) Estimated GFR (Cockcroft-Gault) 75.3 BUN/Creatinine Ratio 13 (6-20) Glucose Level 117 mg/dL (70-99) Calcium Level 9.1 mg/dL (8.5-10.1) Total Bilirubin 0.5 mg/dL (0.2-1.0) Aspartate Amino Transf (AST/SGOT) 20 U/L (15-37) Alanine Aminotransferase (ALT/SGPT) 23 U/L (14-59) Alkaline Phosphatase 80 U/L (46-116) Total Protein 7.0 g/dL (6.4-8.2) Albumin 3.3 g/dL (3.4-5.0) Albumin/Globulin Ratio 0.9 (1.0-1.7) Lipase 91 U/L (73-393) Imaging: Imaging: CT ABD PELV W/ IV CONTRST ONLY Indication: Epigastric pain Technique: Postcontrast CT imaging was performed of the abdomen pelvis, multiplanar reconstruction images submitted. One or more of the following individualized dose reduction techniques were utilized for this examination: 1. Automated exposure control 2. Adjustment of the mA and/or kV according to patient size 3. Use of iterative reconstruction technique. Comparison: May 02, 2017 Findings: Accurate evaluation bowel somewhat limited without oral contrast. However there is a long segment of thick walled small bowel to involve the terminal ileum, associated subtle enhancement of the terminal ileum. There is also some relative wall thickening and mucosal enhancement of the proximal ascending colon. There is some fluid in the small bowel, segment of small bowel dilated up to about 3.7 cm. No free air is identified. There is trace free fluid in the pelvis. Appendix is not confidently identified. There are again about 6 right renal calculi, largest about 0.7 cm inferiorly at site of volume loss. There is some variable thinning of the cortex right kidney. There is no hydronephrosis of either kidney. Both kidneys enhance. No new focal abnormality is identified of the pancreas, spleen, liver. Small 0.6 cm hypodense lesion of the left lobe of liver is similar. Gallbladder is present with subtle internal density, cholelithiasis demonstrated on previous 2017 abdomen ultrasound. There is no adrenal nodularity. There is degenerative disc disease greatest at what is considered L4-5 and L5-S1, also facet degenerative change greater inferiorly of the lumbar spine. Sclerotic lesion of the proximal right femur is stable. IMPRESSION: 1. There is long segment wall thickening and mild mucosal enhancement of the distal small bowel involving terminal ileum and also of the proximal ascending colon, evidence of enterocolitis. Appendix is not clearly identified. There is some fluid in the distended segments of small bowel, more likely ileus than partial obstruction. There is trace free fluid in the pelvis. 2. There are nonobstructive right renal calculi, some areas of cortical thinning of the right kidney as seen previously. 3. There is cholelithiasis as better demonstrated on previous ultrasound. PE: Physcial Exam: GEN.: No apparent distress. Alert and oriented. HEENT: Head is normocephalic, atraumatic NECK: Supple, no JVD LUNGS: Clear to auscultation without rhonchi or wheezing HEART: RRR, S1, S2 present. Peripheral pulses intact ABDOMEN: Soft, diffuse tenderness. Positive bowel sounds no organomegaly EXTREMITIES: Without any cyanosis, clubbing, or edema. Pedal pulses intact NEUROLOGIC: Normal speech, normal tone. A&O x 3 PSYCHIATRIC: Normal affect, normal mood. Stable SKIN: No ulcerations or rashes A/P: A/P: A 1) Lower abdominal pain 2) Abnormal Ct with colonic and small bowel thickening 3) PMH Crohn's 4) Cholelithiasis 5) UTI 6) Constipation P 1) Suspect UTI is source of pain 2) Favor Miralax for constipation if no surgical intervention 3) Check fecal calprotectin JEREMY TOBIN MD Jan 18, 2019 14:59
[2019-01-18 15:05] VITALS: BP 98/62
--- NOTE | 2019-01-18 17:05 | PDOC2 ---
CONSULT Date of Consult Date of Consult DATE: 01/18/19 TIME: 17:00 Reason for Consult Reason for Consult: abd pain, crohn's Referring Physician Referring Physician: Ramos Identification/Chief Complaint Chief Complaint abd pain Source Source: Chart review, Patient History of Present Illness Reason for Visit: 53 yo F with c/o abd pain, improved since admission. Previous episode of crohn's diagnosed in [place], but has not seen GI nor had any additional treatment. No n/V. Bowel fxn c/w her baseline. Past Medical History GI: Inflam bowel disease Past Surgical History Past Surgical History: No pertinent history Family History Family History: No Significant Social History 1 pack per day ALCOHOL: none Drugs: None Current Problem List Problem List Problems Medical Problems: (1) Biliary colic Status: Acute (2) Crohns disease Status: Acute (3) UTI (urinary tract infection) Status: Acute Current Medications Current Medications Current Medications Morphine Sulfate (Morphine Sulfate) 4 mg 1X ONCE IV Last administered on 01/18/19at 07:50; Start 01/18/19 at 07:45; Stop 01/18/19 at 07:46; Status DC Ondansetron HCl (Zofran) 4 mg 1X ONCE IV Last administered on 01/18/19at 07:49; Start 01/18/19 at 07:45; Stop 01/18/19 at 07:46; Status DC Sodium Chloride 1,000 ml @ 1,000 mls/hr 1X ONCE IV Last administered on 01/18/19at 07:49; Start 01/18/19 at 07:45; Stop 01/18/19 at 08:44; Status DC Iohexol (Omnipaque 300 Mg/ml) 75 ml 1X ONCE IV Last administered on 01/18/19at 08:38; Start 01/18/19 at 08:30; Stop 01/18/19 at 08:31; Status DC Info (CONTRAST GIVEN -- Rx MONITORING) 1 each PRN DAILY PRN MC SEE COMMENTS; Start 01/18/19 at 08:30; Stop 01/20/19 at 08:29 Fentanyl Citrate (Fentanyl 2ml Vial) 50 mcg 1X ONCE IV Last administered on 01/18/19at 09:12; Start 01/18/19 at 09:15; Stop 01/18/19 at 09:16; Status DC Levofloxacin/ Dextrose 150 ml @ 100 mls/hr 1X ONCE IV Last administered on 01/18/19at 10:24; Start 01/18/19 at 10:30; Stop 01/18/19 at 11:59; Status DC Ondansetron HCl (Zofran) 4 mg PRN Q8HRS PRN IV NAUSEA/VOMITING; Start 01/18/19 at 10:15; Stop 01/19/19 at 10:14 Morphine Sulfate (Morphine Sulfate) 4 mg Q4HRS PRN IV PAIN Last administered on 01/18/19at 14:31; Start 01/18/19 at 10:15; Stop 01/19/19 at 10:14 Sodium Chloride 1,000 ml @ 100 mls/hr Q10H IV Last administered on 01/18/19at 10:24; Start 01/18/19 at 10:08; Stop 01/19/19 at 10:07 Active Scripts Active Protonix (Pantoprazole Sodium) 40 Mg Tablet.dr 1 Tab PO DAILY Hydrocodone-Apap 5-325 (Hydrocodone Bit/Acetaminophen) 1 Each Tablet 1-2 Tab PO PRN Q6HRS PRN 5 Days Carafate (Sucralfate) 1 Gm Tablet 1 Tab PO QID Reported Ibuprofen 400 Mg Tablet 400 Mg PO PRN Q6HRS PRN Allergies Allergies: Coded Allergies: Penicillins (Unverified Allergy, Intermediate, Hives, 08/01/15) ROS Gastrointestinal: Yes Abdominal Pain Physical Exam General: Alert, Oriented X3, Cooperative, No acute distress HEENT: Atraumatic Lungs: Normal air movement Abdomen: Soft, Other (mild TTP) Extremities: No clubbing, No cyanosis Skin: No rashes, No breakdown Neuro: Normal speech, Sensation intact Psych/Mental Status: Mental status NL, Mood NL Vitals VITALS Vital Signs Date Time Temp Pulse Resp B/P (MAP) Pulse Ox O2 Delivery O2 Flow Rate FiO2 01/18/19 15:05 97.9 76 18 98/62 (74) 98 Room Air 97.9 Labs Labs Laboratory Tests Test 01/18/19 07:10 01/18/19 07:40 Urine Collection Type Void Urine Color Yellow Urine Clarity Cloudy Urine pH 6.0 Urine Specific [place] 1.025 Urine Protein Negative mg/dL (NEG-TRACE) Urine Glucose (UA) Negative mg/dL (NEG) Urine Ketones (Stick) Trace mg/dL (NEG) Urine Blood Small (NEG) Urine Nitrite Positive (NEG) Urine Bilirubin Negative (NEG) Urine Urobilinogen Dipstick 2.0 mg/dL (0.2 mg/dL) Urine Leukocyte Esterase Moderate (NEG) Urine RBC 0 /HPF (0-2) Urine WBC 5-10 /HPF (0-4) Urine Squamous Epithelial Cells Mod /LPF Urine Amorphous Sediment Present /HPF Urine Bacteria Many /HPF (0-FEW) Urine Mucus Mod /LPF White Blood Count 11.3 x10^3/uL (4.0-11.0) Red Blood Count 4.35 x10^6/uL (3.50-5.40) Hemoglobin 13.5 g/dL (12.0-15.5) Hematocrit 39.2 % (36.0-47.0) Mean Corpuscular Volume 90 fL (79-100) Mean Corpuscular Hemoglobin 31 pg (25-35) Mean Corpuscular Hemoglobin Concent 34 g/dL (31-37) Red Cell Distribution Width 13.5 % (11.5-14.5) Platelet Count 302 x10^3/uL (140-400) Neutrophils (%) (Auto) 75 % (31-73) Lymphocytes (%) (Auto) 14 % (24-48) Monocytes (%) (Auto) 10 % (0-9) Eosinophils (%) (Auto) 1 % (0-3) Basophils (%) (Auto) 0 % (0-3) Neutrophils # (Auto) 8.4 x10^3uL (1.8-7.7) Lymphocytes # (Auto) 1.6 x10^3/uL (1.0-4.8) Monocytes # (Auto) 1.1 x10^3/uL (0.0-1.1) Eosinophils # (Auto) 0.1 x10^3/uL (0.0-0.7) Basophils # (Auto) 0.0 x10^3/uL (0.0-0.2) Sodium Level 137 mmol/L (136-145) Potassium Level 3.7 mmol/L (3.5-5.1) Chloride Level 103 mmol/L (98-107) Carbon Dioxide Level 24 mmol/L (21-32) Anion Gap 10 (6-14) Blood Urea Nitrogen 10 mg/dL (7-20) Creatinine 0.8 mg/dL (0.6-1.0) Estimated GFR (Cockcroft-Gault) 75.3 BUN/Creatinine Ratio 13 (6-20) Glucose Level 117 mg/dL (70-99) Calcium Level 9.1 mg/dL (8.5-10.1) Total Bilirubin 0.5 mg/dL (0.2-1.0) Aspartate Amino Transf (AST/SGOT) 20 U/L (15-37) Alanine Aminotransferase (ALT/SGPT) 23 U/L (14-59) Alkaline Phosphatase 80 U/L (46-116) Total Protein 7.0 g/dL (6.4-8.2) Albumin 3.3 g/dL (3.4-5.0) Albumin/Globulin Ratio 0.9 (1.0-1.7) Lipase 91 U/L (73-393) Laboratory Tests Test 01/18/19 07:10 01/18/19 07:40 Urine Collection Type Void Urine Color Yellow Urine Clarity Cloudy Urine pH 6.0 Urine Specific [place] 1.025 Urine Protein Negative mg/dL (NEG-TRACE) Urine Glucose (UA) Negative mg/dL (NEG) Urine Ketones (Stick) Trace mg/dL (NEG) Urine Blood Small (NEG) Urine Nitrite Positive (NEG) Urine Bilirubin Negative (NEG) Urine Urobilinogen Dipstick 2.0 mg/dL (0.2 mg/dL) Urine Leukocyte Esterase Moderate (NEG) Urine RBC 0 /HPF (0-2) Urine WBC 5-10 /HPF (0-4) Urine Squamous Epithelial Cells Mod /LPF Urine Amorphous Sediment Present /HPF Urine Bacteria Many /HPF (0-FEW) Urine Mucus Mod /LPF White Blood Count 11.3 x10^3/uL (4.0-11.0) Red Blood Count 4.35 x10^6/uL (3.50-5.40) Hemoglobin 13.5 g/dL (12.0-15.5) Hematocrit 39.2 % (36.0-47.0) Mean Corpuscular Volume 90 fL (79-100) Mean Corpuscular Hemoglobin 31 pg (25-35) Mean Corpuscular Hemoglobin Concent 34 g/dL (31-37) Red Cell Distribution Width 13.5 % (11.5-14.5) Platelet Count 302 x10^3/uL (140-400) Neutrophils (%) (Auto) 75 % (31-73) Lymphocytes (%) (Auto) 14 % (24-48) Monocytes (%) (Auto) 10 % (0-9) Eosinophils (%) (Auto) 1 % (0-3) Basophils (%) (Auto) 0 % (0-3) Neutrophils # (Auto) 8.4 x10^3uL (1.8-7.7) Lymphocytes # (Auto) 1.6 x10^3/uL (1.0-4.8) Monocytes # (Auto) 1.1 x10^3/uL (0.0-1.1) Eosinophils # (Auto) 0.1 x10^3/uL (0.0-0.7) Basophils # (Auto) 0.0 x10^3/uL (0.0-0.2) Sodium Level 137 mmol/L (136-145) Potassium Level 3.7 mmol/L (3.5-5.1) Chloride Level 103 mmol/L (98-107) Carbon Dioxide Level 24 mmol/L (21-32) Anion Gap 10 (6-14) Blood Urea Nitrogen 10 mg/dL (7-20) Creatinine 0.8 mg/dL (0.6-1.0) Estimated GFR (Cockcroft-Gault) 75.3 BUN/Creatinine Ratio 13 (6-20) Glucose Level 117 mg/dL (70-99) Calcium Level 9.1 mg/dL (8.5-10.1) Total Bilirubin 0.5 mg/dL (0.2-1.0) Aspartate Amino Transf (AST/SGOT) 20 U/L (15-37) Alanine Aminotransferase (ALT/SGPT) 23 U/L (14-59) Alkaline Phosphatase 80 U/L (46-116) Total Protein 7.0 g/dL (6.4-8.2) Albumin 3.3 g/dL (3.4-5.0) Albumin/Globulin Ratio 0.9 (1.0-1.7) Lipase 91 U/L (73-393) Images Images gallstones, small bowel thickening, kidney stones, multiple Assessment/Plan Assessment/Plan Gallstone, kidney stones, crohn's exacerbation agree with bowel rest and supportive care crohn's treatment per GI gallstones unlikely to be current issues abx for UTI and kidney stones. Thanks for consult! LIZ LEMONS MD Jan 18, 2019 17:05
[2019-01-18 19:35] VITALS: BP 93/61
[2019-01-18 23:00] VITALS: BP 92/58
[2019-01-19 03:52] VITALS: BP 99/61
[2019-01-19] MEDS: IV NORMAL SALINE 1000ML BAG 1,000 ML IV SCH (06:17)
[2019-01-19 07:15] VITALS: BP 92/59
--- NOTE | 2019-01-19 10:03 | PDOC ---
Subjective: Subjective: Still with abd pain and foul smelling urine. Wants to eat Objective: Vital Signs: Vital Signs Date Time Temp Pulse Resp B/P (MAP) Pulse Ox O2 Delivery O2 Flow Rate FiO2 01/19/19 07:15 98.6 79 18 92/59 (70) 97 Room Air 98.6 Labs: Laboratory Tests Test 01/19/19 03:30 C-Reactive Protein, Quantitative 58.2 mg/L (0-3.3) Physical Exam: Physical Exam: GEN: NAD HEENT: OP clear CV: S1S2 without murmurs, rubs, or gallops RESP: CTAB without wheezing, rhonchi, or crackles ABD: NABS, +TTP EXT: No edema NEURO: AAO x 3 Assessment & Plan: Assessment : 1) Lower abd pain 2) Crohn's 3) UTI Plan: 1) COnt abx. Add flagyl 2) Start steroids for ? Crohn's. Note WBC is already elevated and CRP elevated 3) Start clears and ADAT JEREMY TOBIN MD Jan 19, 2019 10:03
[2019-01-19] MEDS ORDERED: HYDROCORTISONE SOD SUCC/PF 100 MG/2 ML VIAL. IV ONE (10:15)
[2019-01-19 11:10] VITALS: BP 92/58
[2019-01-19 15:20] VITALS: BP 98/51
--- NOTE | 2019-01-19 15:32 | PDOC ---
SURGICAL PROGRESS NOTE Subjective Pt feels much better, abdoul reg diet Vital Signs Vital Signs Date Time Temp Pulse Resp B/P (MAP) Pulse Ox O2 Delivery O2 Flow Rate FiO2 01/19/19 11:10 98.1 79 18 92/58 (69) 99 Room Air 98.1 I&O Intake and Output 01/19/19 07:00 Intake Total 2820 ml Output Total 800 ml Balance 2020 ml Intake Oral 0 ml IV Total 2820 ml Output Urine Total 800 ml General: Alert, Oriented X3, Cooperative, No acute distress Abdomen: Soft, Other (mild TTP RLQ) Labs Laboratory Tests Test 01/18/19 07:10 01/18/19 07:40 01/19/19 03:30 Urine Collection Type Void Urine Color Yellow Urine Clarity Cloudy Urine pH 6.0 Urine Specific [place] 1.025 Urine Protein Negative mg/dL (NEG-TRACE) Urine Glucose (UA) Negative mg/dL (NEG) Urine Ketones (Stick) Trace mg/dL (NEG) Urine Blood Small (NEG) Urine Nitrite Positive (NEG) Urine Bilirubin Negative (NEG) Urine Urobilinogen Dipstick 2.0 mg/dL (0.2 mg/dL) Urine Leukocyte Esterase Moderate (NEG) Urine RBC 0 /HPF (0-2) Urine WBC 5-10 /HPF (0-4) Urine Squamous Epithelial Cells Mod /LPF Urine Amorphous Sediment Present /HPF Urine Bacteria Many /HPF (0-FEW) Urine Mucus Mod /LPF White Blood Count 11.3 x10^3/uL (4.0-11.0) Red Blood Count 4.35 x10^6/uL (3.50-5.40) Hemoglobin 13.5 g/dL (12.0-15.5) Hematocrit 39.2 % (36.0-47.0) Mean Corpuscular Volume 90 fL (79-100) Mean Corpuscular Hemoglobin 31 pg (25-35) Mean Corpuscular Hemoglobin Concent 34 g/dL (31-37) Red Cell Distribution Width 13.5 % (11.5-14.5) Platelet Count 302 x10^3/uL (140-400) Neutrophils (%) (Auto) 75 % (31-73) Lymphocytes (%) (Auto) 14 % (24-48) Monocytes (%) (Auto) 10 % (0-9) Eosinophils (%) (Auto) 1 % (0-3) Basophils (%) (Auto) 0 % (0-3) Neutrophils # (Auto) 8.4 x10^3uL (1.8-7.7) Lymphocytes # (Auto) 1.6 x10^3/uL (1.0-4.8) Monocytes # (Auto) 1.1 x10^3/uL (0.0-1.1) Eosinophils # (Auto) 0.1 x10^3/uL (0.0-0.7) Basophils # (Auto) 0.0 x10^3/uL (0.0-0.2) Sodium Level 137 mmol/L (136-145) Potassium Level 3.7 mmol/L (3.5-5.1) Chloride Level 103 mmol/L (98-107) Carbon Dioxide Level 24 mmol/L (21-32) Anion Gap 10 (6-14) Blood Urea Nitrogen 10 mg/dL (7-20) Creatinine 0.8 mg/dL (0.6-1.0) Estimated GFR (Cockcroft-Gault) 75.3 BUN/Creatinine Ratio 13 (6-20) Glucose Level 117 mg/dL (70-99) Calcium Level 9.1 mg/dL (8.5-10.1) Total Bilirubin 0.5 mg/dL (0.2-1.0) Aspartate Amino Transf (AST/SGOT) 20 U/L (15-37) Alanine Aminotransferase (ALT/SGPT) 23 U/L (14-59) Alkaline Phosphatase 80 U/L (46-116) Total Protein 7.0 g/dL (6.4-8.2) Albumin 3.3 g/dL (3.4-5.0) Albumin/Globulin Ratio 0.9 (1.0-1.7) Lipase 91 U/L (73-393) C-Reactive Protein, Quantitative 58.2 mg/L (0-3.3) Laboratory Tests Test 01/19/19 03:30 C-Reactive Protein, Quantitative 58.2 mg/L (0-3.3) Problem List Problems Medical Problems: (1) Biliary colic Status: Acute (2) Crohns disease Status: Acute (3) UTI (urinary tract infection) Status: Acute Assessment/Plan crohn's agree with plans per GI no surgical plans currently clinically much improved LIZ LEMONS MD Jan 19, 2019 15:32
--- NOTE | 2019-01-19 16:04 | PDOC ---
PROGRESS NOTES Chief Complaint Chief Complaint acute Abdominal pain Crohn's flare ileus poss leann pain History of Present Illness History of Present Illness weakness, nausea pain a little better would like to advance diet, cont current GI consult following Vitals Vitals Vital Signs Date Time Temp Pulse Resp B/P (MAP) Pulse Ox O2 Delivery O2 Flow Rate FiO2 01/19/19 11:10 98.1 79 18 92/58 (69) 99 Room Air 98.1 Physical Exam General: Alert, Oriented X3, Cooperative, No acute distress Abdomen: Soft, Other (mild TTP RLQ) Extremities: No clubbing, No cyanosis Skin: No rashes, No breakdown Labs LABS Laboratory Tests Test 01/19/19 03:30 C-Reactive Protein, Quantitative 58.2 mg/L (0-3.3) Assessment and Plan Assessmemt and Plan Problems Medical Problems: (1) Biliary colic Status: Acute (2) Crohns disease Status: Acute (3) UTI (urinary tract infection) Status: Acute Comment Review of Relevant I have reviewed the following items moo (where applicable) has been applied. Labs Laboratory Tests Test 01/18/19 07:10 01/18/19 07:40 01/19/19 03:30 Urine Collection Type Void Urine Color Yellow Urine Clarity Cloudy Urine pH 6.0 Urine Specific [place] 1.025 Urine Protein Negative mg/dL (NEG-TRACE) Urine Glucose (UA) Negative mg/dL (NEG) Urine Ketones (Stick) Trace mg/dL (NEG) Urine Blood Small (NEG) Urine Nitrite Positive (NEG) Urine Bilirubin Negative (NEG) Urine Urobilinogen Dipstick 2.0 mg/dL (0.2 mg/dL) Urine Leukocyte Esterase Moderate (NEG) Urine RBC 0 /HPF (0-2) Urine WBC 5-10 /HPF (0-4) Urine Squamous Epithelial Cells Mod /LPF Urine Amorphous Sediment Present /HPF Urine Bacteria Many /HPF (0-FEW) Urine Mucus Mod /LPF White Blood Count 11.3 x10^3/uL (4.0-11.0) Red Blood Count 4.35 x10^6/uL (3.50-5.40) Hemoglobin 13.5 g/dL (12.0-15.5) Hematocrit 39.2 % (36.0-47.0) Mean Corpuscular Volume 90 fL (79-100) Mean Corpuscular Hemoglobin 31 pg (25-35) Mean Corpuscular Hemoglobin Concent 34 g/dL (31-37) Red Cell Distribution Width 13.5 % (11.5-14.5) Platelet Count 302 x10^3/uL (140-400) Neutrophils (%) (Auto) 75 % (31-73) Lymphocytes (%) (Auto) 14 % (24-48) Monocytes (%) (Auto) 10 % (0-9) Eosinophils (%) (Auto) 1 % (0-3) Basophils (%) (Auto) 0 % (0-3) Neutrophils # (Auto) 8.4 x10^3uL (1.8-7.7) Lymphocytes # (Auto) 1.6 x10^3/uL (1.0-4.8) Monocytes # (Auto) 1.1 x10^3/uL (0.0-1.1) Eosinophils # (Auto) 0.1 x10^3/uL (0.0-0.7) Basophils # (Auto) 0.0 x10^3/uL (0.0-0.2) Sodium Level 137 mmol/L (136-145) Potassium Level 3.7 mmol/L (3.5-5.1) Chloride Level 103 mmol/L (98-107) Carbon Dioxide Level 24 mmol/L (21-32) Anion Gap 10 (6-14) Blood Urea Nitrogen 10 mg/dL (7-20) Creatinine 0.8 mg/dL (0.6-1.0) Estimated GFR (Cockcroft-Gault) 75.3 BUN/Creatinine Ratio 13 (6-20) Glucose Level 117 mg/dL (70-99) Calcium Level 9.1 mg/dL (8.5-10.1) Total Bilirubin 0.5 mg/dL (0.2-1.0) Aspartate Amino Transf (AST/SGOT) 20 U/L (15-37) Alanine Aminotransferase (ALT/SGPT) 23 U/L (14-59) Alkaline Phosphatase 80 U/L (46-116) Total Protein 7.0 g/dL (6.4-8.2) Albumin 3.3 g/dL (3.4-5.0) Albumin/Globulin Ratio 0.9 (1.0-1.7) Lipase 91 U/L (73-393) C-Reactive Protein, Quantitative 58.2 mg/L (0-3.3) Laboratory Tests Test 01/19/19 03:30 C-Reactive Protein, Quantitative 58.2 mg/L (0-3.3) Medications Current Medications Morphine Sulfate (Morphine Sulfate) 4 mg 1X ONCE IV Last administered on 01/18/19 07:50; Start 01/18/19 at 07:45; Stop 01/18/19 at 07:46; Status DC Ondansetron HCl (Zofran) 4 mg 1X ONCE IV Last administered on 01/18/19at 07:49; Start 01/18/19 at 07:45; Stop 01/18/19 at 07:46; Status DC Sodium Chloride 1,000 ml @ 1,000 mls/hr 1X ONCE IV Last administered on 01/18/19at 07:49; Start 01/18/19 at 07:45; Stop 01/18/19 at 08:44; Status DC Iohexol (Omnipaque 300 Mg/ml) 75 ml 1X ONCE IV Last administered on 01/18/19at 08:38; Start 01/18/19 at 08:30; Stop 01/18/19 at 08:31; Status DC Info (CONTRAST GIVEN -- Rx MONITORING) 1 each PRN DAILY PRN MC SEE COMMENTS; Start 01/18/19 at 08:30; Stop 01/20/19 at 08:29 Fentanyl Citrate (Fentanyl 2ml Vial) 50 mcg 1X ONCE IV Last administered on 01/18/19at 09:12; Start 01/18/19 at 09:15; Stop 01/18/19 at 09:16; Status DC Levofloxacin/ Dextrose 150 ml @ 100 mls/hr 1X ONCE IV Last administered on 01/18/19at 10:24; Start 01/18/19 at 10:30; Stop 01/18/19 at 11:59; Status DC Ondansetron HCl (Zofran) 4 mg PRN Q8HRS PRN IV NAUSEA/VOMITING; Start 01/18/19 at 10:15; Stop 01/19/19 at 10:14; Status DC Morphine Sulfate (Morphine Sulfate) 4 mg Q4HRS PRN IV PAIN Last administered on 01/18/19at 19:47; Start 01/18/19 at 10:15; Stop 01/19/19 at 10:14; Status DC Sodium Chloride 1,000 ml @ 100 mls/hr Q10H IV Last administered on 01/19/19at 06:17; Start 01/18/19 at 10:08; Stop 01/19/19 at 10:07; Status DC Metronidazole 100 ml @ 100 mls/hr Q8HRS IV Last administered on 01/19/19at 13:38; Start 01/19/19 at 14:00 Hydrocortisone Sodium Succinate (Solu-CORTEF) 100 mg 1X ONCE IV Last administered on 01/19/19at 10:23; Start 01/19/19 at 10:15; Stop 01/19/19 at 10:16; Status DC Levofloxacin/ Dextrose 50 ml @ 50 mls/hr Q24H IV Last administered on 01/19/19at 11:39; Start 01/19/19 at 11:00 Lactobacillus Rhamnosus (Culturelle) 1 cap BID PO ; Start 01/19/19 at 21:00 Active Scripts Active Protonix (Pantoprazole Sodium) 40 Mg Tablet.dr 1 Tab PO DAILY Hydrocodone-Apap 5-325 (Hydrocodone Bit/Acetaminophen) 1 Each Tablet 1-2 Tab PO PRN Q6HRS PRN 5 Days Carafate (Sucralfate) 1 Gm Tablet 1 Tab PO QID Reported Ibuprofen 400 Mg Tablet 400 Mg PO PRN Q6HRS PRN Vitals/I & O Vital Sign - Last 24 Hours 01/18/19 01/18/19 01/18/19 01/18/19 19:35 19:47 20:25 20:25 Temp 98.1 98.1 Pulse 84 Resp 20 14 12 B/P (MAP) 93/61 (72) Pulse Ox 97 O2 Delivery Room Air Room Air Room Air Room Air 01/18/19 01/19/19 01/19/19 01/19/19 23:00 03:52 07:15 08:00 Temp 97.3 98.4 98.6 97.3 98.4 98.6 Pulse 75 77 79 Resp 20 20 18 B/P (MAP) 92/58 (69) 99/61 (74) 92/59 (70) Pulse Ox 96 96 97 O2 Delivery Room Air Room Air Room Air Room Air 01/19/19 11:10 Temp 98.1 98.1 Pulse 79 Resp 18 B/P (MAP) 92/58 (69) Pulse Ox 99 O2 Delivery Room Air Intake and Output 01/18/19 01/18/19 01/19/19 15:00 23:00 07:00 Intake Total 1000 ml 835 ml 985 ml Output Total 800 ml Balance 1000 ml 35 ml 985 ml GAUDENCIO NAIK MD Jan 19, 2019 16:04
[2019-01-19 19:44] VITALS: BP 95/59
[2019-01-19] MEDS: LACTOBACILLUS RHAMNOSUS GG 1 CAPSULE. PO SCH (21:45)
[2019-01-19 23:19] VITALS: BP 103/74
[2019-01-20 03:34] VITALS: BP_SYST 89; BP_SYST 91; BP_DIAS 48; BP_DIAS 53
[2019-01-20 07:00] VITALS: BP_SYST 104; BP_SYST 91; BP_DIAS 48; BP_DIAS 63
--- NOTE | 2019-01-20 08:55 | PDOC ---
SURGICAL PROGRESS NOTE Subjective feels well wants to go home tolerating diet Vital Signs Vital Signs Date Time Temp Pulse Resp B/P (MAP) Pulse Ox O2 Delivery O2 Flow Rate FiO2 01/20/19 07:00 98.2 76 16 104/63 (77) 96 Room Air 98.2 91/48 (62) I&O Intake and Output 01/20/19 07:00 Intake Total 1000 ml Output Total 800 ml Balance 200 ml Intake Oral 900 ml IV Total 100 ml Output Urine Total 800 ml # Voids 2 General: Alert, Oriented X3, Cooperative, No acute distress Abdomen: Soft, No tenderness Labs Laboratory Tests Test 01/19/19 03:30 C-Reactive Protein, Quantitative 58.2 mg/L (0-3.3) Problem List Problems Medical Problems: (1) Biliary colic Status: Acute (2) Crohns disease Status: Acute (3) UTI (urinary tract infection) Status: Acute Assessment/Plan crohns as per GI no surgical plans MOSHE WILKES APRN Jan 20, 2019 08:55
[2019-01-20] MEDS: LACTOBACILLUS RHAMNOSUS GG 1 CAPSULE. PO SCH (09:16)
[2019-01-20 11:00] VITALS: BP_SYST 107; BP_SYST 91; BP_DIAS 48; BP_DIAS 67
[2019-01-20] MEDS ORDERED: METR500T PO (11:30)
[2019-01-20] MEDS ORDERED: CIPR250T30 PO (11:32)
--- NOTE | 2019-01-20 11:34 | PDOC3 ---
Discharge Summary Visit Information Date of Admission: Jan 18, 2019 Date of Discharge: Jan 20, 2019 Final Diagnosis acute Abdominal pain Crohn's flare ileus poss leann pain UTI History of Present Illness History of Present Illness weakness, nausea pain a little better would like to advance diet, cont current GI consult following Vitals Problems Medical Problems: (1) Biliary colic Status: Acute (2) Crohns disease Status: Acute (3) UTI (urinary tract infection) Status: Acute Brief Hospital Course Allergies Allergies Coded Allergies Type Severity Reaction Last Updated Verified Penicillins Allergy Intermediate Hives 08/01/15 No Vital Signs Vital Signs Date Time Temp Pulse Resp B/P (MAP) Pulse Ox O2 Delivery O2 Flow Rate FiO2 01/20/19 11:00 98.7 76 18 107/67 (80) 98 Room Air 98.7 91/48 (62) Lab Results Laboratory Tests Test 01/19/19 03:30 C-Reactive Protein, Quantitative 58.2 mg/L (0-3.3) Brief Hospital Course Ms. Bingham is a 53 old female, admit with diarrhea and abd pain, prior CT consistent with crohns, admit GI consult, patient improve,d no steroids, levaquin and flagyl, will need f/u Sandy felt much better at day 2, and wanted DC Discharge Information Condition at Discharge: Improved Follow Up: Weeks Disposition/Orders: D/C to Home Scheduled Ciprofloxacin Hcl (Cipro) 250 Mg Tablet, 1 TAB PO BID for UTI, #10 Prescribed by: GAUDENCIO NAIK on 01/20/19 1132 Metronidazole (Flagyl) 500 Mg Tablet, 500 MG PO TID for enteritis, #21 Prescribed by: GAUDENCIO NAIK on 01/20/19 1130 Pantoprazole Sodium (Protonix) 40 Mg Tablet.dr, 1 TAB PO DAILY, #30 Ref 5 Prescribed by: WON HENRY MD on 05/02/17 1323 Sucralfate (Carafate) 1 Gm Tablet, 1 TAB PO QID, #60 Ref 1 Prescribed by: WON HENRY MD on 05/02/17 1323 Scheduled PRN Hydrocodone Bit/Acetaminophen (Hydrocodone-Apap 5-325 ) 1 Each Tablet, 1-2 TA B PO PRN Q6HRS PRN for PAIN for 5 Days, #10 Ref 0 Prescribed by: WON HENRY MD on 05/02/17 1323 Ibuprofen (Ibuprofen) 400 Mg Tablet, 400 MG PO PRN Q6HRS PRN for INFLAMMATION, (Reported) Entered as Reported by: JEANNA HERNANDEZ on 01/18/191410 Last Taken: UNKNOWN on Unknown Date & Time Last Action: New Order on 01/18/191410 by JEANNA HERNANDEZ Patient Instructions Patient Instructions > 30 min seen face to face coordination of care needs f/u GAUDENCIO Conley MD Jan 20, 2019 11:34
--- NOTE | 2019-01-20 14:59 | PDOC ---
Subjective: Subjective: Wants to go home by 4:00 - denies n/v, abd pain, diarrhea, constipation. Objective: Objective: S/p IV steroids x 1. Vital Signs: Vital Signs Date Time Temp Pulse Resp B/P (MAP) Pulse Ox O2 Delivery O2 Flow Rate FiO2 01/20/19 11:00 98.7 76 18 107/67 (80) 98 Room Air 98.7 91/48 (62) Imaging: CT A/P IMPRESSION: 1. There is long segment wall thickening and mild mucosal enhancement of the distal small bowel involving terminal ileum and also of the proximal ascending colon, evidence of enterocolitis. Appendix is not clearly identified. There is some fluid in the distended segments of small bowel, more likely ileus than partial obstruction. There is trace free fluid in the pelvis. 2. There are nonobstructive right renal calculi, some areas of cortical thinning of the right kidney as seen previously. 3. There is cholelithiasis as better demonstrated on previous ultrasound. PE: GEN: NAD LUNGS: CTAB HEART: RRR ABD: NABS, S/ND/NT NEURO/PSYCH: A & O 3 - tearful when I said she could go home this afternoon A/P: Lower abd pain - resolved UTI H/o Crohn's, no previous colonoscopy/biopsy -- DC per primary - will review meds w/ Dr. Brady. Needs outpt follow-up. MIHIR GIRON Jan 20, 2019 14:59
[2019-01-20 15:00] VITALS: BP_SYST 108; BP_SYST 91; BP_DIAS 48; BP_DIAS 73
--- NOTE | 2019-01-20 15:41 | NUR ---
Discharge Note: JACKELINE LINO [address] Discharge instructions and discharge home medications reviewed with patient and a copy given. All questions have been answered and understanding verbalized. The following instructions and handouts were given: Prescription for metronidazole and ciprofloxacin handouts about Crohns and UTI FF up with PCP FF up with GI as outpx Discontinued lines and drains: peripheral IV intact, patient tolerated removal, no complications noted. Patient is ambulatory, discharged to home accompanied by daughter at 1540.
== END 2019-01-20 15:45 | disposition home or self-care (01) | DRG 445 ==
LOC: ER 07:08 → 6 SOUTH 10:19
PROVIDERS: ADMIT Internal Medicine; ATTEND Internal Medicine
DX: K80.20 Calculus of gallbladder without cholecystitis without obstruction (principal); N39.0 Urinary tract infection, site not specified; K50.90 Crohn's disease, unspecified, without complications; K56.7 Ileus, unspecified; F17.210 Nicotine dependence, cigarettes, uncomplicated; N20.0 Calculus of kidney; T15.90XA Foreign body on external eye, part unspecified, unspecified eye, initial encounter; Z87.442 Personal history of urinary calculi
CPT/HCPCS: 36415; 74177; 80053; 81001; 83690; 85025; 86140; 87086; 87186; 96361; 96365; 96375; J1720; J1956; J2270; J2405; J3010; J3490; J7030; Q9967; 99285-25

== ENCOUNTER 2020-11-03 07:21 | Emergency (ER) | payer SELFPAY ==
[~2020-11-03] VITALS: Ht 172.7 cm; Wt 81.8 kg
[~2020-11-03 07:21] MED LIST changes: +CIPR250T30 PO; +IBUP-1027 PO; +METR500T PO; -PANT40TA3 PO; +PANT40TA77 PO
--- NOTE | 2020-11-03 07:42 | PHYS DOC ---
Past Medical History Past Medical History: Other Additional Past Medical Histor: CROHNS,LOWER LUMBAR BULGING DISC,"BRAIN TUMOR" Past Surgical History: Other Additional Past Surgical Histo: ARTHROSCOPIC R KNEE Smoking Status: Current Every Day Smoker Alcohol Use: Occasionally Drug Use: None General Adult EDM: Chief Complaint: KNEE INJURY HPI: HPI: Patient is a 55 year old female who presented to ER for evaluation of right knee injury. Patient says she was walking in her house on Sunday night, tripped and fell down on her right knee. Patient has been able to walk but the pain is getting worse, and the swelling get worse so she came in for evaluation. Patient denies any other injury. Patient denies any hip pain, no low back pain, no pelvic pain Review of Systems: Review of Systems: Constitutional: Denies fever or chills. [] Eyes: Denies change in visual acuity. [] HENT: Denies nasal congestion or sore throat. [] Respiratory: Denies cough or shortness of breath. [] Cardiovascular: Denies chest pain or edema. [] GI: Denies abdominal pain, nausea, vomiting, bloody stools or diarrhea. [] : Denies dysuria. [] Musculoskeletal: Positive for right knee pain and swelling Integument: Denies rash. [] Neurologic: Denies headache, focal weakness or sensory changes. [] Endocrine: Denies polyuria or polydipsia. [] Lymphatic: Denies swollen glands. [] Psychiatric: Denies depression or anxiety. [] Heart Score: Risk Factors: Risk Factors: DM, Current or recent (<one month) smoker, HTN, HLP, family history of CAD, obesity. Risk Scores: Score 0 - 3: 2.5% MACE over next 6 weeks - Discharge Home Score 4 - 6: 20.3% MACE over next 6 weeks - Admit for Clinical Observation Score 7 - 10: 72.7% MACE over next 6 weeks - Early Invasive Strategies Allergies: Allergies: Allergies Coded Allergies Type Severity Reaction Last Updated Verified Penicillins Allergy Intermediate Hives 08/01/15 No Physical Exam: PE: Constitutional: Well developed, well nourished, no acute distress, non-toxic appearance. [] HENT: Normocephalic, atraumatic, bilateral external ears normal, oropharynx moist, no oral exudates, nose normal. [] Eyes: PERRLA, EOMI, conjunctiva normal, no discharge. [] Neck: Normal range of motion, no tenderness, supple, no stridor. [] Cardiovascular:Heart rate regular rhythm, no murmur [] Lungs & Thorax: Bilateral breath sounds clear to auscultation [] Abdomen: Bowel sounds normal, soft, no tenderness, no masses, no pulsatile m asses. [] Skin: Warm, dry, no erythema, no rash. [] Back: No tenderness, no CVA tenderness. [] Extremities: Right anterior knee is swollen and tender to palpation. Right knee joint is stable. There is swelling at prepatelar bursa area. Patient can flex and extend right knee, no evidence of patella tendon separation. Neurologic: Alert and oriented X 3, normal motor function, normal sensory function, no focal deficits noted. [] Psychologic: Affect normal, judgement normal, mood normal. [] EKG: EKG: [] Radiology/Procedures: Radiology/Procedures: [][facility] [address] [place], [place] [id number] IMAGING REPORT Signed PATIENT: JACKELINE LINO ACCOUNT: [id number] : 1965 LOCATION: ER AGE: 55 SEX: F EXAM STATUS: REG ER ORD. PHYSICIAN: MP RUTHERFORD DO REASON: fell, right knee pain PROCEDURE: KNEE RIGHT 3V Right knee x-rays 3 views HISTORY: Fall, right knee pain. FINDINGS: No fracture. No dislocation. Mild prefemoral suprapatellar soft tissue fullness deep to the quadriceps may indicate the presence of a small joint effusion. There is soft tissue thickening and possibly edema at the prepatellar knee as well as at the infrapatellar knee at the region of the patellar tendon, injury of the tendon is not excluded. IMPRESSION: No acute osseous injury. See above. Electronically signed by: Easton Jones MD (11/03/2020 8:09 AM) [id number] DICTATED and SIGNED BY: EASTON JONES MD DATE: 11/03/20 [id number] 0 Course & Med Decision Making: Course & Med Decision Making Pertinent Labs and Imaging studies reviewed. (See chart for details) [] Theresa Disclaimer: Theresa Disclaimer: This electronic medical record was generated, in whole or in part, using a voice recognition dictation system. Departure Departure Impression: Primary Impression: Contusion of right knee Disposition: 01 DC HOME SELF CARE/HOMELESS Condition: STABLE Referrals: NO PCP (PCP) Follow up with your doctor as needed Patient Instructions: Contusion Additional Instructions: Follow up with your family physician for outpatient evaluation with MRI of your right knee. Scripts Naproxen Sodium (ANAPROX DS) 550 Mg Tablet 1 TAB PO BID PRN for PAIN for 10 Days, #20 TAB 0 Refills Prov: MP RUTHERFORD DO 11/03/20 MP RUTHERFORD DO Nov 03, 2020 07:42
--- NOTE | 2020-11-03 08:11 | RAD ---
Right knee x-rays 3 views HISTORY: Fall, right knee pain. FINDINGS: No fracture. No dislocation. Mild prefemoral suprapatellar soft tissue fullness deep to the quadriceps may indicate the presence of a small joint effusion. There is soft tissue thickening and possibly edema at the prepatellar knee as well as at the infrapatellar knee at the region of the guzmán llar tendon, injury of the tendon is not excluded. IMPRESSION: No acute osseous injury. See above. Electronically signed by: Mikel Jones MD (11/03/2020 8:09 AM) [id number]
[2020-11-03 08:30] VITALS: BP 105/69
[2020-11-03] MEDS ORDERED: NAPR-682 PO (08:52)
== END 2020-11-03 08:58 | disposition home or self-care (01) ==
LOC: ER 07:21
DX: S80.01XA Contusion of right knee, initial encounter (principal); W01.0XXA Fall on same level from slipping, tripping and stumbling without subsequent striking against object, initial encounter; Y93.01 Activity, walking, marching and hiking; Y99.8 Other external cause status; Y92.89 Other specified places as the place of occurrence of the external cause
CPT/HCPCS: 73562; 99283

== ENCOUNTER 2021-04-13 12:49 | Emergency (ER) | payer SELFPAY ==
[~2021-04-13] VITALS: Ht 172.7 cm; Wt 88.3 kg
[~2021-04-13 12:49] MED LIST changes: +NAPR-682 PO
[2021-04-13 13:24] VITALS: BP 116/76
[2021-04-17] MEDS ORDERED: ACET325T21 PO (11:51)
[2021-04-17] MEDS ORDERED: ASPI325T11 PO (11:51)
== END 2021-04-13 14:30 | disposition left against medical advice (07) ==
LOC: ER 12:49
DX: M25.562 Pain in left knee (principal); Z53.21 Procedure and treatment not carried out due to patient leaving prior to being seen by health care provider

== ENCOUNTER 2021-11-13 18:54 | Emergency (ER) | payer SELFPAY ==
[~2021-11-13] VITALS: Ht 172.7 cm; Wt 80.8 kg
[~2021-11-13 18:54] MED LIST changes: +ACET325T21 PO; +ASPI325T11 PO
--- NOTE | 2021-11-13 19:17 | ED.ADGEN ---
Past Medical History Past Medical History: Other Additional Past Medical Histor: chrons, HEART MURMUR Past Surgical History: Other Additional Past Surgical Histo: left/right knee injury. Left knee surgery March 2021 Smoking Status: Current Every Day Smoker Alcohol Use: None Drug Use: None General Adult EDM: Chief Complaint: KNEE INJURY HPI: HPI: Patient is a 56 year old female who presents to the emergency department with complaints of right knee pain. Patient states she fell about 6 months ago and fractured her left kneecap her right knee is hurt ever since that fall. Patient states she has never had any imaging of the right knee because she thought maybe she just twisted it. She denies any redness, warmth, laxity, or decreased range of motion. Patient states at times it feels like her knee is going to give out. She currently rates pain a 3 out of 10 on the pain scale, patient states she has been taking 800 mg of ibuprofen as needed for the pain with little relief. Review of Systems: Review of Systems: Complete ROS is negative unless otherwise noted in the HPI. Current Medications: Current Medications Medications (Trade) Dose Ordered Sig/Daisy Start Time Stop Time Status Last Admin Dose Admin Naproxen (Naprosyn) 500 mg 1X ONCE 11/13/21 19:30 11/13/21 19:31 DC Allergies: Allergies: Allergies Coded Allergies Type Severity Reaction Last Updated Verified Penicillins Allergy Intermediate Hives 08/01/15 No Physical Exam: PE: See above Constitutional: Well developed, well nourished, no acute distress, non-toxic appearance. [] HENT: Normocephalic, atraumatic, bilateral external ears normal, nose normal. [] Eyes: PERRLA, EOMI, conjunctiva normal, no discharge. [] Neck: Normal range of motion, no stridor. [] Cardiovascular:Heart rate regular rhythm Lungs & Thorax: Respirations even and unlabored, no retractions, no respiratory distress Skin: Warm, dry, no erythema, no rash. [] Extremities: Right knee: Diffuse medial tenderness to palpation, negative anterior/posterior drawer testing, sensation intact, no crepitus, no cyanosis, ROM intact, no edema. [] Neurologic: Alert and oriented X 3, no focal deficits noted. [] Psychologic: Affect normal, judgement normal, mood normal. [] Current Patient Data: Vital Signs: Vital Signs Date Time Temp Pulse Resp B/P (MAP) Pulse Ox O2 Delivery O2 Flow Rate FiO2 11/13/21 18:57 98.4 94 16 116/97 (103) 99 98.4 EKG: EKG: [] Heart Score: C/O Chest Pain: No Radiology/Procedures: Radiology/Procedures: R KNEE XRAY NEGATIVE FOR ACUTE FINDINGS READ BY DR. MOLINA[] Course & Med Decision Making: Course & Med Decision Making Pertinent Labs and Imaging studies reviewed. (See chart for details) 36-year-old female presents emergency department with complaints of right knee pain for several months. X-ray was negative for any acute fracture finding. Patient was given 500 mg of naproxen in the emergency department. Prescription was written for naproxen 500 mg twice daily x10 days. Advised patient not to take ibuprofen while taking naproxen, she can continue to take Tylenol as needed for pain. Recommended follow-up with Dr. Rivers for further evaluation and treatment. Return to the ER if your symptoms worsen or fever develops. Patient verbalized an understanding of home care, medications, follow-up, and return to ED instructions and was in agreement with the plan of care. [] Dragon Disclaimer: Dragon Disclaimer: This electronic medical record was generated, in whole or in part, using a voice recognition dictation system. Departure Departure Impression: Primary Impression: Right knee pain Disposition: HOME / SELF CARE / HOMELESS Condition: STABLE Referrals: LESLEY RIVERS MD Patient Instructions: Knee Pain, [id number] Additional Instructions: Fill prescription(s) and use as directed. Recommend application of ice, elevation, and rest of affected extremity. Follow up with Dr. Rivers for further evaluation and treatment. Return to the ER if your symptoms worsen or fever develops. Scripts Naproxen (NAPROXEN) 500 Mg Tablet 1 TAB PO BID PRN for PAIN for 10 Days, #20 TAB 0 Refills Prov: SARAH HILL CLOTH PRINTING INSPECTOR 11/13/21 Problem Qualifiers Primary Impression: Right knee pain Chronicity: acute Qualified Codes: M25.561 - Pain in right knee SARAH HILL CLOTH PRINTING INSPECTOR Nov 13, 2021 19:17
[2021-11-13] MEDS ORDERED: NAPROXEN 500 MG TABLET PO ONE (19:30)
[2021-11-13] MEDS ORDERED: NAPR-514 PO (19:49)
--- NOTE | 2021-11-13 20:00 | RAD ---
KNEE 3 VIEWS Right Clinical Indication: Reason: r KNEE PAIN / Spl. Instructions: / History: Comparison: None. Findings: There is no acute fracture or dislocation. The tricompartmental joint spaces are maintained. The guzmán lla is in anatomic position. There is no soft tissue abnormality. There is no joint effusion. IMPRESSION: No acute fracture. Electronically signed by: Jordy Jimenez MD (11/13/2021 7:57 PM) [facility]
[2021-11-13 20:01] VITALS: BP 95/66
== END 2021-11-13 20:09 | disposition home or self-care (01) ==
LOC: ER 18:54
DX: M25.561 Pain in right knee (principal); G89.11 Acute pain due to trauma; F17.200 Nicotine dependence, unspecified, uncomplicated; Z88.0 Allergy status to penicillin; W18.39XA Other fall on same level, initial encounter; Y93.89 Activity, other specified; Y92.89 Other specified places as the place of occurrence of the external cause; Y99.8 Other external cause status
CPT/HCPCS: 73562; 99283; 99285-25